=== PATIENT | female | born 1985 | race Caucasian/White ===

== ENCOUNTER 2016-07-19 06:04 | Emergency (ER) | payer MEDICAID ==
[~2016-07-19] VITALS: Ht 154.9 cm; Wt 139.3 kg
[~2016-07-19 06:04] MED LIST: FLEXERIL10 MG PO; HCTZ PO; INSULIN-HUMA100 U/ML SC; LANTUS INS100 UNITS/ SUBQ; LANTUS100 U/ML SUBQ; MOTRIN600 MG PO; NOVOLIN 70/30 710 M1 SUBQ; NOVOLOG MIX 70/10 ML SUBQ; ZESTRIL30 MG PO; [UNRECOGNIZED DRUG - OTHER]; [UNRECOGNIZED DRUG - REMARK]
[2016-07-19 06:11] VITALS: BP 142/86
--- NOTE | 2016-07-19 06:20 | NUR ---
TO ER BED 4
--- NOTE | 2016-07-19 06:30 | NUR ---
CAME IN WITH C/O PAINFUL AND BURNING SENSATION WHEN SHE URINATE FOR 2 -3 DAYS NOW.
--- NOTE | 2016-07-19 06:39 | NUR ---
Patient being evaluated by physician at bedside.
[2016-07-19 06:50] VITALS: BP 142/86
--- NOTE | 2016-07-19 06:50 | NUR ---
Patient discharged with v/s stable. Written and verbal after care instructions given and explained. Patient alert, oriented and verbalized understanding of instructions. Ambulatory with steady gait. All questions addressed prior to discharge. ID band removed. Patient advised to follow up with PMD. Rx of CIPRO, DIFLUCAN given. Patient educated on indication of medication including possible reaction and side effects. Opportunity to ask questions provided and answered.
== END 2016-07-19 06:50 | disposition home or self-care (01) ==
LOC: MED 06:04
DX: N39.0 Urinary tract infection, site not specified (principal); B37.9 Candidiasis, unspecified; J45.909 Unspecified asthma, uncomplicated; E11.9 Type 2 diabetes mellitus without complications; I10 Essential (primary) hypertension

== ENCOUNTER 2016-12-03 03:40 | Emergency (ER) | payer MEDICAID ==
[~2016-12-03] VITALS: Ht 154.9 cm; Wt 145.1 kg
[~2016-12-03 03:40] MED LIST changes: -FLEXERIL10 MG PO; -HCTZ PO; +INSU10SU6 SUBQ; -INSULIN-HUMA100 U/ML SC; -LANTUS INS100 UNITS/ SUBQ; -LANTUS100 U/ML SUBQ; +LISI10TA11 PO; -MOTRIN600 MG PO; -NOVOLIN 70/30 710 M1 SUBQ; -NOVOLOG MIX 70/10 ML SUBQ; +ORE25 PO; -ZESTRIL30 MG PO; -[UNRECOGNIZED DRUG - OTHER]; -[UNRECOGNIZED DRUG - REMARK]
[2016-12-03 03:49] VITALS: BP 159/106
--- NOTE | 2016-12-03 03:53 | NUR ---
PT TAKEN TO BED 4
--- NOTE | 2016-12-03 03:53 | NUR ---
Dr. Mccauley evaluating patient at bedside.
[2016-12-03] MEDS ORDERED: diphenhydrAMINE 50 MG CAP PO ONE (03:55)
[2016-12-03] MEDS ORDERED: predniSONE 20 MG TAB PO ONE (03:55)
[2016-12-03] MEDS ORDERED: FAMOTIDINE 20 MG TAB PO ONE (03:55)
--- NOTE | 2016-12-03 03:59 | NUR ---
31Y/F PT. PRESENT TO ED WITH C/O GENERALIZED RASH WITH ITCHING X 2 DAYS. HX. HTN, DM. AAO X4, AMBULATORY WITH STEADY GAIT. RESPIRATIONS ROOM AIR, EVEN AND UNLABORED. BL LUNG CLEAR. SKIN WARM AND DRY, GENERALIZED RASH NOTED. NO S/SX OD DISTRESS NOTED. VSS, ER MADE AWARE OF PT. STATUS.
[2016-12-03 04:25] VITALS: BP 149/95
--- NOTE | 2016-12-03 04:25 | NUR ---
Patient discharged with v/s stable. Written and verbal after care instructions given and explained. Patient alert, oriented and verbalized understanding of instructions. Ambulatory with steady gait. All questions addressed prior to discharge. ID band removed. Patient advised to follow up with PMD. Rx of PREDNISONE 20 MG, BENEDRYL 25 MG given. Patient educated on indication of medication including possible reaction and side effects. Opportunity to ask questions provided and answered.
== END 2016-12-03 04:25 | disposition home or self-care (01) ==
LOC: MED 03:40
DX: T78.1XXA Other adverse food reactions, not elsewhere classified, initial encounter (principal); L50.8 Other urticaria; J45.909 Unspecified asthma, uncomplicated; E11.9 Type 2 diabetes mellitus without complications; I10 Essential (primary) hypertension; Z79.899 Other long term (current) drug therapy; Z79.4 Long term (current) use of insulin; X58.XXXA Exposure to other specified factors, initial encounter
CPT/HCPCS: 82948; 99284; J7512; Q0163

== ENCOUNTER 2018-01-13 00:30 | Emergency (ER) | payer MEDICAID ==
[2018-01-12 23:31] VITALS: BP 143/88
[~2018-01-13] VITALS: Ht 157.5 cm; Wt 163.3 kg
[~2018-01-13 00:30] MED LIST changes: +TRA200 PO
[2018-01-13 00:43] VITALS: BP 127/62
[2018-01-13] MEDS ORDERED: ACETAMINOPHEN EXTRA STRENGTH 500 MG TAB PO ONE (01:10)
[2018-01-13 02:47] VITALS: BP 127/62
== END 2018-01-13 02:47 | disposition home or self-care (01) ==
LOC: MED 00:30 → EDSTATUS 00:30 → MED 02:47
DX: O9A.213 Injury, poisoning and certain other consequences of external causes complicating pregnancy, third trimester (principal); S83.91XA Sprain of unspecified site of right knee, initial encounter; J45.909 Unspecified asthma, uncomplicated; E11.9 Type 2 diabetes mellitus without complications; I10 Essential (primary) hypertension; Z79.899 Other long term (current) drug therapy; W18.30XA Fall on same level, unspecified, initial encounter; Y93.89 Activity, other specified; Y92.89 Other specified places as the place of occurrence of the external cause; Y99.8 Other external cause status
CPT/HCPCS: 73562; 81000; 82948; 99284; Q0092

== ENCOUNTER 2018-05-16 20:57 | Emergency (ER) | payer MEDICAID ==
[~2018-05-16] VITALS: Ht 154.9 cm; Wt 144.2 kg
[2018-05-16 21:52] VITALS: BP 162/92
--- NOTE | 2018-05-16 21:57 | NUR ---
PT AMBULATED TO LOBBY WITH VSS.
--- NOTE | 2018-05-16 23:17 | NUR ---
PT AMBULATORY TO ER PIPPA W/ STEADY GAIT.
--- NOTE | 2018-05-16 23:35 | NUR ---
PT TO RADIOLOGY VIA WHEELCHAIR BY TECH.
[2018-05-17] MEDS ORDERED: MECLIZINE 25 MG TAB PO ONE (00:20)
--- NOTE | 2018-05-17 00:45 | NUR ---
DR. CALDERON AT BEDSIDE.
[2018-05-17 01:05] VITALS: BP 148/91
== END 2018-05-17 01:05 | disposition home or self-care (01) ==
LOC: MED 20:57
DX: R42 Dizziness and giddiness (principal); R11.0 Nausea; E11.9 Type 2 diabetes mellitus without complications; I10 Essential (primary) hypertension; Z79.4 Long term (current) use of insulin; Z79.899 Other long term (current) drug therapy
CPT/HCPCS: 70450; 81002; 81025; 87086; 99284; J8597

== ENCOUNTER 2020-11-10 15:02 | Emergency (ER) | payer MEDICAID ==
[~2020-11-10] VITALS: Ht 154.9 cm; Wt 158.8 kg
[~2020-11-10 15:02] MED LIST changes: +LISI-486 PO; -LISI10TA11 PO
[2020-11-10 15:05] VITALS: BP 170/107
--- NOTE | 2020-11-10 15:56 | NUR ---
C/O URINARY BURNING, DYSURIA, LOWER ABD PAIN, 8/10 LOWER BACK PAIN, LEON, CHILLS X 3 DAYS. BP 170/107, BLOOD SUGAR 306 AT THIS TIME. PMH: DM, HTN, C SECTIONS
[2020-11-10] MEDS ORDERED: PYR100 PO (16:03)
[2020-11-10] MEDS ORDERED: CEPH-588 PO (16:03)
[2020-11-10] MEDS ORDERED: IBUP-2213 PO (16:03)
[2020-11-10 16:15] VITALS: BP 170/107
--- NOTE | 2020-11-10 16:16 | NUR ---
Patient discharged with v/s stable. Written and verbal after care instructions given and explained. Patient alert, oriented and verbalized understanding of instructions. Ambulatory with steady gait. All questions addressed prior to discharge. ID band removed. Patient advised to follow up with PMD. Rx of IBUPROFEN, CEPHALEXIN, PHENAZOPYRIDINE given. Patient educated on indication of medication including possible reaction and side effects. Opportunity to ask questions provided and answered.
== END 2020-11-10 16:16 | disposition home or self-care (01) ==
LOC: MED 15:02
DX: N39.0 Urinary tract infection, site not specified (principal); E11.9 Type 2 diabetes mellitus without complications; I10 Essential (primary) hypertension; Z79.899 Other long term (current) drug therapy
CPT/HCPCS: 81002; 81025; 99283

== ENCOUNTER 2021-01-09 01:38 | Emergency (ER) | payer MEDICAID ==
[~2021-01-09] VITALS: Ht 154.9 cm; Wt 165.6 kg
[~2021-01-09 01:38] MED LIST changes: +CEPH-588 PO; +IBUP-2213 PO; +PYR100 PO
[2021-01-09 01:40] VITALS: BP 160/102
--- NOTE | 2021-01-09 01:55 | NUR ---
AMBULATORY TO LOBBY TO A/W BED. EKG COMPLETE
[2021-01-09] MEDS ORDERED: MORPHINE SULFATE 4 MG/ML SYR IM ONE (03:00)
--- NOTE | 2021-01-09 03:00 | NUR ---
KENYA AT CHAIR FOR [facility].
[2021-01-09] MEDS ORDERED: predniSONE 20 MG TAB PO ONE (06:55)
[2021-01-09] MEDS ORDERED: ROBAC PO (06:56)
[2021-01-09] MEDS ORDERED: PRON INH (06:56)
[2021-01-09] MEDS ORDERED: ALBU0.0912 INH (06:56)
[2021-01-09] MEDS ORDERED: PRED20TA5 PO (06:56)
--- NOTE | 2021-01-09 07:31 | NUR ---
ENDORSED FROM BUSINESS CASE ANALYST
[2021-01-09] MEDS ORDERED: predniSONE 20 MG TAB ONE (08:17)
[2021-01-09 08:32] VITALS: BP 180/96
--- NOTE | 2021-01-09 08:32 | NUR ---
Patient discharged with v/s stable. Written and verbal after care instructions given and explained. Patient alert, oriented and verbalized understanding of instructions. Ambulatory with steady gait. All questions addressed prior to discharge. ID band removed. Patient advised to follow up with PMD. Rx of ALBUTEROL, PREDISONE, AND CODEINE PHOSPHATE/GUAIFENESI given. Patient educated on indication of medication including possible reaction and side effects. Opportunity to ask questions provided and answered.
== END 2021-01-09 08:32 | disposition home or self-care (01) ==
LOC: MED 01:38
DX: J45.909 Unspecified asthma, uncomplicated (principal); E11.9 Type 2 diabetes mellitus without complications; I10 Essential (primary) hypertension; Z79.899 Other long term (current) drug therapy; Z79.4 Long term (current) use of insulin
CPT/HCPCS: 71045; 93005; 96372; 99283; J2270; J7512

== ENCOUNTER 2021-01-20 18:28 | Emergency (ER) | payer MEDICAID ==
[~2021-01-20] VITALS: Ht 154.9 cm; Wt 166.9 kg
[~2021-01-20 18:28] MED LIST changes: +ALBU0.0912 INH; +PRED20TA5 PO; +PRON INH; +ROBAC PO
[2021-01-20 18:47] VITALS: BP 180/101
--- NOTE | 2021-01-20 18:52 | NUR ---
PT AMBULATED TO ER BED 2
--- NOTE | 2021-01-20 19:04 | NUR ---
DEONNA ELLIOTT AT BEDSIDE EVALUATING PT
--- NOTE | 2021-01-20 19:16 | NUR ---
REPORT GIVEN TO SHU POON, TRANSFER OF CARE AT THIS TIME
[2021-01-20] MEDS ORDERED: ALBUTEROL SULFATE/IPRATROPIU 3 ML SOL IH ONE (19:20)
[2021-01-20] MEDS ORDERED: ACETAMINOPHEN EXTRA STRENGTH 500 MG TAB PO ONE (19:30)
[2021-01-20] MEDS ORDERED: predniSONE 20 MG TAB PO ONE (19:30)
--- NOTE | 2021-01-20 19:47 | NUR ---
ADMINISTERED ERMD MED ORDERS
[2021-01-20] MEDS ORDERED: ACET-10509 PO (20:38)
[2021-01-20] MEDS ORDERED: BENZ-196 PO (20:38)
[2021-01-20] MEDS ORDERED: PRED20TA5 PO (20:38)
[2021-01-20 21:06] VITALS: BP 180/101
--- NOTE | 2021-01-20 21:08 | NUR ---
Patient discharged with v/s stable. Written and verbal after care instructions given and explained. Patient alert, oriented and verbalized understanding of instructions. Ambulatory with steady gait. All questions addressed prior to discharge. ID band removed. Patient advised to follow up with PMD. Rx of TYLENOL, TESSALON PERIE, PREDNISONE given. Patient educated on indication of medication including possible reaction and side effects. Opportunity to ask questions provided and answered.
== END 2021-01-20 21:08 | disposition home or self-care (01) ==
LOC: MED 18:28
DX: J45.909 Unspecified asthma, uncomplicated (principal); J06.9 Acute upper respiratory infection, unspecified; E11.9 Type 2 diabetes mellitus without complications; I10 Essential (primary) hypertension; Z79.4 Long term (current) use of insulin; Z79.899 Other long term (current) drug therapy
CPT/HCPCS: 93005; 94640; 99283; J7512

== ENCOUNTER 2021-01-31 11:57 | Emergency (ER) | payer MEDICAID ==
[~2021-01-31] VITALS: Ht 154.9 cm; Wt 163.3 kg
[~2021-01-31 11:57] MED LIST changes: +ACET-10509 PO; +BENZ-196 PO
[2021-01-31 12:08] VITALS: BP 195/105
--- NOTE | 2021-01-31 12:38 | NUR ---
pt c/o cough , sob x1 week. finished 2 rounds of steroids. states no relief. mildly tachypneic. speaking in complete sentences. pending orders.
[2021-01-31] MEDS ORDERED: methylPREDNISolone SS 125 MG/2 ML VIAL IVP ONE (12:55)
[2021-01-31] MEDS ORDERED: ALBUTEROL 0.083% 2.5 MG/3 ML NEBU INH ONE ×2 (12:55→14:05)
--- NOTE | 2021-01-31 13:12 | NUR ---
ABG COMPLETED NO ADVERSE REACTIOSN NOTED AR RIGHT RADIAL
--- NOTE | 2021-01-31 13:15 | NUR ---
[facility] THERPAY AND RESPIRATORY DRUG GIVEN ORDERED ENCOURAGED PATIENT FOR INTERMITTENT DEEP BREATHING DURING THERAPY
[2021-01-31 13:16] LABS: BASOPHILS % (AUTO) 0.4 % (0.0-2.0); EOSINOPHILS # (AUTO) 0.3 K/uL (0-0.4); EOSINOPHILS % (AUTO) 2.6 % (0.0-4.0); HEMATOCRIT 31.6 % (36-48); LYMPHOCYTES # (AUTO) 1.5 K/uL (2.5-16.5); LYMPHOCYTES % (AUTO) 13.3 % (20.5-51.1); MEAN CORPUSCULAR HEMOGLOBIN 24 pg (27-31); MEAN CORPUSCULAR HGB CONC 32 g/dL (33-37); MEAN CORPUSCULAR VOLUME 75.2 fL (80-94); MONOCYTES # (AUTO) 0.6 K/uL (0.8-1.0); NEUTROPHILS % (AUTO) 78.7 % (42.2-75.2); PLATELET COUNT (AUTO) 262 K/uL (140-450); WHITE BLOOD COUNT (AUTO) 11.4 K/uL (4.8-10.8)
[2021-01-31 13:25] LABS: ALBUMIN 2.3 g/dL (3.4-5.0); ANION GAP 7.8 (8-16); CARBON DIOXIDE 31.7 mmol/L (21-32); CREATININE 0.8 mg/dL (0.6-1.3); POTASSIUM 4.5 mmol/L (3.5-5.1); TOTAL BILIRUBIN 0.3 mg/dL (0.0-1.0)
[2021-01-31] MEDS ORDERED: IPRATROPIUM 0.02% 0.5 MG/2.5 ML NEBU INH ONE (14:05)
[2021-01-31] MEDS ORDERED: PRED50TA2 PO (14:13)
[2021-01-31] MEDS ORDERED: AZIT250T4 PO (14:13)
--- NOTE | 2021-01-31 14:34 | NUR ---
pt verbalizes dc instructions.no acute distress noted.stable on dc.
[2021-01-31 14:36] VITALS: BP 137/80
[2021-03-10] MEDS ORDERED: INSU100I7 SQ (02:40)
[2021-03-10] MEDS ORDERED: TRAZ-343 PO (02:40)
[2021-03-10] MEDS ORDERED: DULA4.5P SQ (02:40)
[2021-03-13] MEDS ORDERED: PANT40EC56 PO (09:07)
[2021-03-13] MEDS ORDERED: FURO-570 PO (09:07)
[2021-03-13] MEDS ORDERED: NIFE30TA36 PO (09:07)
[2021-03-13] MEDS ORDERED: METO25TA PO (09:07)
[2021-03-13] MEDS ORDERED: PRED10TA5 PO (09:07)
== END 2021-01-31 14:34 | disposition home or self-care (01) ==
LOC: MED 11:57
DX: J45.901 Unspecified asthma with (acute) exacerbation (principal); R60.0 Localized edema; J45.909 Unspecified asthma, uncomplicated; I10 Essential (primary) hypertension; E11.9 Type 2 diabetes mellitus without complications; Z79.899 Other long term (current) drug therapy; Z20.822 Contact with and (suspected) exposure to COVID-19
CPT/HCPCS: 36415; 36600; 71045; 80053; 82803; 83880; 84484; 85025; 85379; 87426; 87804; 93005; 94640; 96374; 99285; J2930; J7613; J7644; Q0092

== ENCOUNTER 2021-02-08 14:17 | Inpatient (IN) | payer MEDICAID, SELFPAY ==
[~2021-02-08] VITALS: Ht 154.9 cm; Wt 178.7 kg
[~2021-02-08 14:17] MED LIST changes: +AZIT250T4 PO; +PRED50TA2 PO
[2021-02-08 14:20] VITALS: BP 185/110
--- NOTE | 2021-02-08 14:29 | NUR ---
Patient ambulated with steady gait to bed 1.
--- NOTE | 2021-02-08 14:40 | NUR ---
DR HUTCHINSON AT BEDSIDE EXAMINING PT
--- NOTE | 2021-02-08 14:40 | NUR ---
35 Y/O F BIB SPOUSE FROM HOME, C/O SOB, COUGH, CONGESTION FOR 1 MO. DENIES ANYONE ELSE SICK IN HOUSEHOLD. PT STATED SHE HAS SWELLING IN FACE, HANDS AND BILATERAL LOWER EXTREMITIES THIS MORNING. LUNG SOUNDS WHEEZING. PT STATES 8/10 ACHING PAIN RADIATING TO LOWER BACK. PMH: ASTHMA, HTN, DM2 NKA
[2021-02-08] MEDS ORDERED: ALBUTEROL SULFATE/IPRATROPIU 3 ML SOL IH ONE (14:50)
--- NOTE | 2021-02-08 15:11 | NUR ---
XRAY AT BEDSIDE
[2021-02-08] MEDS ORDERED: KETOROLAC 30 MG/ML VIAL IM ONE (17:05)
--- NOTE | 2021-02-08 17:40 | NUR ---
DR HUTCHINSON AT BEDSIDE PERFORMING ULTRASOUND
--- NOTE | 2021-02-08 18:14 | NUR ---
BLOOD LABS DROPPED OFF AT LAB WITH SUSANA ALEMAN
[2021-02-08 18:23] LABS: BASOPHILS # (AUTO) 0.1 K/uL (0.00-0.22); BASOPHILS % (AUTO) 0.8 % (0.0-2.0); EOSINOPHILS # (AUTO) 0.3 K/uL (0-0.4); EOSINOPHILS % (AUTO) 2.8 % (0.0-4.0); HEMATOCRIT 31.6 % (36-48); HEMOGLOBIN 10.1 g/dL (12.0-16.0); LYMPHOCYTES # (AUTO) 1.5 K/uL (2.5-16.5); LYMPHOCYTES % (AUTO) 15.3 % (20.5-51.1); MEAN CORPUSCULAR HEMOGLOBIN 24 pg (27-31); MEAN CORPUSCULAR HGB CONC 32 g/dL (33-37); MEAN CORPUSCULAR VOLUME 75.8 fL (80-94); MONOCYTES # (AUTO) 0.5 K/uL (0.8-1.0); MONOCYTES % (AUTO) 4.8 % (1.7-9.3); NEUTROPHILS # (AUTO) 7.4 K/uL (1.8-7.7); NEUTROPHILS % (AUTO) 76.3 % (42.2-75.2); PLATELET COUNT (AUTO) 272 K/uL (140-450); RED BLOOD CELL COUNT(AUTO) 4.18 MIL/uL (4.20-5.40); RED CELL DISTRIBUTION WIDTH 17.3 % (11.6-13.7); WHITE BLOOD COUNT (AUTO) 9.8 K/uL (4.8-10.8)
--- NOTE | 2021-02-08 18:30 | NUR ---
PT TAKEN TO CT SCAN VIA MITCHELL
[2021-02-08 18:35] LABS: ALBUMIN 2.2 g/dL (3.4-5.0); ANION GAP 10.4 (8-16); CARBON DIOXIDE 33.3 mmol/L (21-32); CREATININE 0.9 mg/dL (0.6-1.3); POTASSIUM 4.7 mmol/L (3.5-5.1); TOTAL BILIRUBIN 0.3 mg/dL (0.0-1.0)
--- NOTE | 2021-02-08 18:40 | NUR ---
PER CHEMICAL ENGINEER PT UNABLE TO FIT THROUGH CT SCAN, KENYA MADE AWARE
--- NOTE | 2021-02-08 18:42 | NUR ---
PT RETURNED FROM CT
--- NOTE | 2021-02-08 18:57 | NUR ---
PT REQUESTING FOR FOOD, PER ERMD OKAY TO GIVE. PROVIDED WITH TURKEY SANDWICH
--- NOTE | 2021-02-08 19:00 | NUR ---
RECEIVED CALL FROM [employer] WHO STATED CT CANNOT BE COMPLETED DUE TO PT OVER WEIGHT LIMIT FOR CT. DR. DIETZ MADE AWARE.
--- NOTE | 2021-02-08 19:09 | NUR ---
Pt report given to JEREMIAH SHERWOOD. Transfer of care at this time.
--- NOTE | 2021-02-08 19:14 | NUR ---
RECEIVED REPORT FROM DEBBIE POON.
--- NOTE | 2021-02-08 20:00 | NUR ---
PT REPOSITIONED AND PUT INTO SEMI FOWLERS POSITION.
[2021-02-08] MEDS ORDERED: ONDANSETRON 4 MG/2 ML VIAL IVP PRN (20:25)
[2021-02-08] MEDS ORDERED: LORazepam 2 MG/ML VIAL IM/IVP PRN (20:25)
[2021-02-08] MEDS ORDERED: SODIUM PHOS / POTASSIUM PHOS 1 PKT PDR PO PRN (20:25)
[2021-02-08] MEDS ORDERED: ACETAMINOPHEN 325 MG TAB PO PRN (20:25)
[2021-02-08] MEDS ORDERED: MAG SULF 2000 MG/WATER PREMIX 50 ML IV PRN (20:25)
[2021-02-08] MEDS ORDERED: ZOLPIDEM 5 MG TAB PO PRN (20:25)
[2021-02-08] MEDS ORDERED: POTASSIUM CHLORIDE 10 MEQ TABER PO PRN (20:25)
[2021-02-08] MEDS ORDERED: DOCUSATE SODIUM 100 MG GELCAP PO PRN (20:25)
[2021-02-08] MEDS ORDERED: MORPHINE SULFATE 2 MG/ML SYR IVP PRN (20:25)
--- NOTE | 2021-02-08 20:35 | NUR ---
US AT BEDSIDE
[2021-02-08] MEDS ORDERED: DEXTROSE 50% 50 ML SYR IVP PRN (20:40)
[2021-02-08] MEDS ORDERED: hydrALAZINE 20 MG/ML VIAL IVP SCH (20:45)
[2021-02-08] MEDS ORDERED: ALBUTEROL 0.083% 2.5 MG/3 ML NEBU INH PRN (20:45)
--- NOTE | 2021-02-08 20:48 | NUR ---
Mark maher in EDM - 02/08/21 at 2051 by [email or web address] PATIENT ALERT ORIENTED NOT COMPLAINED OF PAIN AT THIS TIME STABLE ADMITED TO THE FLOOR ROOM 105B REPORTED AND ENDORSE OF CARE TO CHANDU KOO SIGNS IN NORMAL LIMITS //Marly POON
[2021-02-08] MEDS: NACL 0.9% 1,000 ML IV SCH (20:55)
[2021-02-08] MEDS: methylPREDNISolone SS 40 MG/ML VIAL IVP SCH (21:01)
[2021-02-08] MEDS: BLOOD GLUCOSE MONITORING 1 DEV DEV FS SCH (21:12)
[2021-02-08 21:14] LABS: PROTHROMBIN TIME 9.5 secs (10.8-13.4)
[2021-02-08 21:27] LABS: CHOL/HDL RATIO 2.6 (1-4.5); FREE T4 (FREE THYROXINE) 1.06 ng/dL (0.76-1.46); PHOSPHORUS 4.2 mg/dL (2.5-4.9); THYROID STIMULATING HORMONE 1.18 uIU/mL (0.34-3.74)
[2021-02-08] MEDS: INSULIN LISPRO SLIDING SCALE 100 UNITS/ML VIAL SUBQ PRN (21:40)
--- NOTE | 2021-02-08 21:40 | NUR ---
INSULIN ADMINISTERED PER SLIDING SCALE OF BS OF 211.
--- NOTE | 2021-02-08 22:09 | NUR ---
Patient appears to be resting comfortably in bed. Vital Signs within normal limits. Respirations even and unlabored. BOTH BED RAILS UP AND BED AT LOWEST POSITION.
--- NOTE | 2021-02-08 22:23 | NUR ---
Mark maher in [facility] - 02/08/21 at 2224 by [email or web address] REPOSITIONED PT IN THE BED, PT RESTING COMFORTABLY.
--- NOTE | 2021-02-08 22:59 | NUR ---
RT AT [facility] WITH PT.
[2021-02-09] MEDS ORDERED: CLONIDINE HYDROCHLORIDE 0.1 MG TAB PO SCH (01:30)
[2021-02-09] MEDS ORDERED: HYDROcodone/APAP 5/325 MG 1 TAB TAB ONE (02:33)
[2021-02-09] MEDS: HYDROcodone/APAP 5/325 MG 1 TAB TAB PO PRN (02:34)
--- NOTE | 2021-02-09 02:34 | NUR ---
PT C/O HEADACHE AND WAS GIVEN A PRN MEDICATION FOR PAIN.
--- NOTE | 2021-02-09 03:41 | NUR ---
PT'S SPO2 MOVED TO EARLOBE.
--- NOTE | 2021-02-09 04:21 | NUR ---
Patient appears to be resting comfortably in bed. Respirations even and unlabored. BED AT LOWEST POSITION AND BOTH BED RAILS DOWN.
--- NOTE | 2021-02-09 05:34 | NUR ---
PT REPOSTIONED, PT IN [employer] STATES SHE FEELS A LOT BETTER AND ASKED WHEN SHE WAS GOING TO BE MOVED TO TELE. PT'S BED IN LOWEST POSITION AND BOTH BED RAILS UP.
--- NOTE | 2021-02-09 05:40 | NUR ---
PT ASKED TO USE RESTOOM X 3 TIMES, PT STATES SHE DOESNT NEED TOO AND WILL TRY GOING SOON.
[2021-02-09 06:11] LABS: BASOPHILS # (AUTO) 0.1 K/uL (0.00-0.22); EOSINOPHILS % (AUTO) 0.1 % (0.0-4.0); HEMATOCRIT 35.2 % (36-48); HEMOGLOBIN 11.3 g/dL (12.0-16.0); MEAN CORPUSCULAR HEMOGLOBIN 24 pg (27-31); MEAN CORPUSCULAR HGB CONC 32 g/dL (33-37); MEAN CORPUSCULAR VOLUME 75.7 fL (80-94); MONOCYTES # (AUTO) 0.1 K/uL (0.8-1.0); MONOCYTES % (AUTO) 0.9 % (1.7-9.3); NEUTROPHILS # (AUTO) 9.6 K/uL (1.8-7.7); PLATELET COUNT (AUTO) 318 K/uL (140-450); RED BLOOD CELL COUNT(AUTO) 4.65 MIL/uL (4.20-5.40); RED CELL DISTRIBUTION WIDTH 17.4 % (11.6-13.7); WHITE BLOOD COUNT (AUTO) 10.8 K/uL (4.8-10.8)
[2021-02-09 06:15] LABS: BILIRUBIN,URINE NEGATIVE (NEGATIVE); BLOOD, URINE 2+ (NEGATIVE); LEUKOCYTE ESTERASE ,URINE NEGATIVE (NEGATIVE); NITRITE, URINE NEGATIVE (NEGATIVE); UGLUCOSE 2+ (NEGATIVE)
[2021-02-09 06:22] LABS: APPEARANCE,URINE CLOUDY (CLEAR); COLOR,URINE YELLOW (YELLOW)
[2021-02-09] MEDS: NACL 0.9% 1,000 ML IV SCH ×2 (06:25→16:25)
[2021-02-09 06:34] LABS: ALBUMIN 2.4 g/dL (3.4-5.0); ANION GAP 13.8 (8-16); CARBON DIOXIDE 28.8 mmol/L (21-32); CREATININE 1.1 mg/dL (0.6-1.3); MAGNESIUM 1.6 mg/dL (1.8-2.4); POTASSIUM 4.6 mmol/L (3.5-5.1); TOTAL BILIRUBIN 0.4 mg/dL (0.0-1.0)
[2021-02-09 06:36] LABS: WBC,URINE 0-5 /HPF (0-5)
[2021-02-09 06:37] LABS: URINE AMORPHOUS URATE 1+ /HPF (None Seen)
[2021-02-09 06:39] LABS: BARBITURATE, URINE NEGATIVE ng/ml (NEG <=200); BENZODIAZEPINE, URINE NEGATIVE ng/mL (NEG <=200); CANNABINOID, URINE NEGATIVE ng/mL (NEG <=50); COCAINE, URINE NEGATIVE ng/mL (NEG <=300); OPIATE, URINE NEGATIVE ng/mL (NEG <=2000); PHENCYCLIDINE SCREEN,URINE NEGATIVE ng/mL (NEG <=25)
[2021-02-09 06:52] LABS: LYMPHOCYTES % (AUTO) 9.1 % (20.5-51.1); NEUTROPHILS % (AUTO) 88.9 % (42.2-75.2)
--- NOTE | 2021-02-09 06:57 | NUR ---
Patient appears to be resting comfortably in bed. Vital Signs within normal limits. Respirations even and unlabored. BOTH BED RAILS DONE AND BED AT LOWEST POSITION.
--- NOTE | 2021-02-09 07:13 | NUR ---
REPORT GIVEN TO LONA POON. Addendum: 02/09/21 at 0714 by [email or web address] REPORT GIVEN TO LONA POON FOR TRANSFER OF CARE.
[2021-02-09] MEDS: BLOOD GLUCOSE MONITORING 1 DEV DEV FS SCH ×4 (07:20→21:00)
[2021-02-09] MEDS: INSULIN LISPRO SLIDING SCALE 100 UNITS/ML VIAL SUBQ PRN ×4 (07:31→22:35)
--- NOTE | 2021-02-09 07:47 | NUR ---
ER CALLED TO GIVE REPORT ON NEW ADMIT. ER STATED PT IS STABLE.
--- NOTE | 2021-02-09 07:51 | NUR ---
Patient will be admitted to care of MARIANA TOLBERT. Admited to TELEMETRY. Will go to room 105A. Belongings list completed. Report to KADEN POON.
--- NOTE | 2021-02-09 08:05 | NUR ---
PT ARRIVED ON UNIT TO RM 105A. VS WERE TAKEN. PT IS BREATHING EVEN AND UNLABORED WITH SOME AUDIBLE WHEEZING. NO S/S OF DISTRESS. PT DENIES PAIN AT THE MOMENT. PT IS STABLE.
[2021-02-09] MEDS: hydroCHLOROthiazide 25 MG TAB PO SCH (09:42)
[2021-02-09] MEDS: lisinopriL 10 MG TAB PO SCH (09:42)
[2021-02-09] MEDS: FUROSEMIDE 20 MG/2 ML VIAL IVP SCH (09:42)
[2021-02-09] MEDS: methylPREDNISolone SS 40 MG/ML VIAL IVP SCH ×2 (09:42→21:00)
--- NOTE | 2021-02-09 11:30 | NUR ---
BLOOD SUGAR IS 292. WILL GIVE 6 UNITS OF INSULIN PER MD ORDER AND SLIDING SCALE. PT IS STABLE.
[2021-02-09] MEDS: LABETALOL 200 MG TAB PO SCH (12:50)
--- NOTE | 2021-02-09 13:00 | NUR ---
PT IS RESTING WITH FAMILY AT BEDSIDE. BREATHING IS EVEN AND UNLABORED. NO S/S OF DISTRESS. PT IS STABLE.
--- NOTE | 2021-02-09 14:30 | NUR ---
PT IS RESTING. BREATHING IS EVEN AND UNLABORED. NO S/S OF DISTRESS. PT IS STABLE.
[2021-02-09 16:00] VITALS: BP 122/59
--- NOTE | 2021-02-09 16:30 | NUR ---
PT BLOOD SUGAR IS 305. WILL COVER WITH 8 UNITS. PT EXPLAINED SHE TAKES LANTUS AT HOME BEFORE BEDTIME.
--- NOTE | 2021-02-09 16:35 | NUR ---
DR ORDERED INSULIN GLARGINE LANTUS 60 UNITS AT BEDTIME TO BETTER CONTROL BLOOD SUGAR.
[2021-02-09] MEDS: MONTELUKAST SODIUM 10 MG TAB PO SCH (17:05)
--- NOTE | 2021-02-09 18:01 | NUR ---
PT IS SITTING IN CHAIR. TALKING ON THE PHONE WITH FAMILY. BREATHING IS EVEN AND UNLABORED. NO S/S OF DISTRESS. PT IS STABLE.
--- NOTE | 2021-02-09 19:30 | NUR ---
ENDORSED PT BEDSIDE TO ENERGY RATER NURSE FOR CONTINUITY OF CARE. EXPLAINED POC. PT IS STABLE.
[2021-02-09 20:00] VITALS: BP 120/58
[2021-02-09] MEDS: INSULIN LANTUS 100 UNITS/ML 10 ML VIAL SUBQ SCH (21:00)
--- NOTE | 2021-02-09 22:09 | NUR ---
NOC BI-PAP STARTED AT THIS TIME PT IS TOLERATING WELL, CPAP- PS 11, 21% FIO2, WILL CONTINUE TO MONITOR
[2021-02-10] VITALS: BP 122/60
[2021-02-10] MEDS: NACL 0.9% 1,000 ML IV SCH ×3 (02:12→22:25)
--- NOTE | 2021-02-10 03:20 | NUR ---
PATIENT ALERT NO C/O ON MONITOR SINUS PATIENT PUT ON BI-PAP 02 24 % NO C/O OF RESP. DISTRESS. LUNGS DIMINISH BLOOD SUGAR 330 HUMALOG 8 UNITS. S.Q LANTUS 60 UNITS. S.Q. PATIENT MAG. 1.6 GIVEN 2000MG MAGNESIUM-RIDER. PATIENT HAS IV SITE IN LEFT UPPER ARM INFUSING NS 100 HOUR. PATIENT SLEEPING WELL. NO DISTRESS.
[2021-02-10 04:00] VITALS: BP 120/62
[2021-02-10] MEDS: BLOOD GLUCOSE MONITORING 1 DEV DEV FS SCH ×4 (06:36→21:02)
[2021-02-10 06:37] LABS: BASOPHILS % (AUTO) 0.1 % (0.0-2.0); HEMATOCRIT 31.6 % (36-48); HEMOGLOBIN 10.1 g/dL (12.0-16.0); LYMPHOCYTES # (AUTO) 1.1 K/uL (2.5-16.5); LYMPHOCYTES % (AUTO) 10.6 % (20.5-51.1); MEAN CORPUSCULAR HEMOGLOBIN 24 pg (27-31); MEAN CORPUSCULAR HGB CONC 32 g/dL (33-37); MEAN CORPUSCULAR VOLUME 76.1 fL (80-94); MONOCYTES # (AUTO) 0.2 K/uL (0.8-1.0); MONOCYTES % (AUTO) 2.2 % (1.7-9.3); NEUTROPHILS # (AUTO) 8.8 K/uL (1.8-7.7); NEUTROPHILS % (AUTO) 87.1 % (42.2-75.2); PLATELET COUNT (AUTO) 277 K/uL (140-450); RED BLOOD CELL COUNT(AUTO) 4.15 MIL/uL (4.20-5.40); RED CELL DISTRIBUTION WIDTH 17.4 % (11.6-13.7); WHITE BLOOD COUNT (AUTO) 10.1 K/uL (4.8-10.8)
[2021-02-10] MEDS: INSULIN LISPRO SLIDING SCALE 100 UNITS/ML VIAL SUBQ PRN ×4 (06:37→21:17)
[2021-02-10 06:40] LABS: ALBUMIN 2.3 g/dL (3.4-5.0); ANION GAP 11.5 (8-16); CARBON DIOXIDE 30.4 mmol/L (21-32); CREATININE 0.8 mg/dL (0.6-1.3); MAGNESIUM 2.2 mg/dL (1.8-2.4); POTASSIUM 4.9 mmol/L (3.5-5.1); TOTAL BILIRUBIN 0.3 mg/dL (0.0-1.0)
--- NOTE | 2021-02-10 07:30 | NUR ---
PATIENT ENDORSED FROM CAN CAPPER NURSE. PT RESTING IN BED ALL SAFETY MEASURES ARE IN PLACE. CALL LIGHT WITHIN REACH , BED IN LOWEST POSITION. ALL BELONGINGS WITHIN REACH.
--- NOTE | 2021-02-10 07:35 | NUR ---
AWAKE AND ALERT VERBALLY RESPONSIVE GOOD CHEST RISE AIRWAY PATENT CURRENTLY STANDING AT SINK FOR MORNING HYGIENE PATIENT STATES THAT SHE REMOVED BIPAP TO MASK AT OR AROUND 0500 HOUR ON ROOM AIR SATURATION 97% HR 111 RR 20-24
[2021-02-10 08:00] VITALS: BP 129/75
[2021-02-10] MEDS: lisinopriL 10 MG TAB PO SCH (08:36)
[2021-02-10] MEDS: FUROSEMIDE 20 MG/2 ML VIAL IVP SCH (08:36)
[2021-02-10] MEDS: hydroCHLOROthiazide 25 MG TAB PO SCH (08:37)
[2021-02-10] MEDS: methylPREDNISolone SS 40 MG/ML VIAL IVP SCH (08:37)
--- NOTE | 2021-02-10 08:54 | NUR ---
PATIENT HAS BEEN SCREENED AND CATEGORIZED HIGH NUTRITION RISK. PATIENT WILL BE SEEN WITHIN 1-2 DAYS OF ADMISSION. 02/10/21 REFERRAL RECEIVED FOR LOW SODIUM DIET [address]
--- NOTE | 2021-02-10 09:25 | NUR ---
MEDICATIONS GIVEN PER MD ORDER. PT EDUCATED AND VERBALIZED UNDERSTANDING . PATIENT IS ABLE TO MAKE NEEDS KNOWN ICE WATER PROVIDED AT THIS TIME . ALL SAFETY MEASURES ARE IN PLACE.
--- NOTE | 2021-02-10 10:30 | NUR ---
ECHO COMPLETE, PT TOLERATED WELL . ALL SAFETY MEASURES ARE IN PLACE.
[2021-02-10] MEDS: cephALEXin 500 MG CAP PO SCH ×3 (11:15→21:01)
--- NOTE | 2021-02-10 11:30 | NUR ---
PT BG ASSESSED 316 . PT STATES SHE TAKES LANTUS AT HOME AND THAT IS THE REASON WHY HER BG IS HIGH . ALL SAFETY MEASURES ARE IN PLACE . MD ANGULO
--- NOTE | 2021-02-10 11:52 | NUR ---
02/10/21 RD INITIAL ASSESSMENT COMPLETED PLEASE REFER TO NUTRITION ASSESSMENT UNDER CARE ACTIVITY FOR ESTIMATED NUTRITIONAL NEEDS. 1.RECOMMEND CCHO, 2GM NA DIET 2.PROVIDED NUTRITION EDUCATION ON CCHO, 2GM NA DIET 3. RD TO FOLLOW-UP 3-5 DAYS, MODERATE RISK REVIEWED BY SHAWNEE MARX RD
[2021-02-10] MEDS: LABETALOL 200 MG TAB PO SCH (12:19)
--- NOTE | 2021-02-10 12:20 | NUR ---
MEDICATIONS GIVEN PER MD ORDER. PT EDUCATED AND VERBALIZED UNDERSTANDING ALL SAFETY MEASURES ARE IN PLACE.E
[2021-02-10 16:00] VITALS: BP 149/80
--- NOTE | 2021-02-10 16:30 | NUR ---
BG 347, PATIENT EDUCATED AND VERBALIZED UNDERSTANDING . PRN MEDICATION GIVEN AT THIS TIME . DOUBLE NURSE VERIFICATION PERFORMED ALL SAFETY MEASURES ARE IN PLACE.
[2021-02-10] MEDS: MONTELUKAST SODIUM 10 MG TAB PO SCH (17:10)
--- NOTE | 2021-02-10 17:14 | NUR ---
medications given per md order. patient educated and verba;ized understanding . all safety measures are in place,
--- NOTE | 2021-02-10 18:32 | NUR ---
THERAPEUTIC COMMUNICATION PERFORMED. PT VENTED ABOUT HER DECISION TO RECEIVE GASTRIC BYPASS AND LOSE WEIGHT . PT HAD 100% OF DINNER ALL SAFETY MEASURES ARE IN PLACE.
--- NOTE | 2021-02-10 19:34 | NUR ---
patient endorsed to police shift commander nurse. pt instable condition.
--- NOTE | 2021-02-10 19:35 | NUR ---
RECEIVED REPORT FROM MORNING SHIFT FOR CONTINUITY OF CARE. PATIENT IS STABLE IN BED. A&OX4. VERBALLY RESPONSIVE AND ABLE TO COMMUNICATE NEEDS. DENIES PAIN AT THIS TIME. NO APPARENT S/SX OF ACUTE DISTRESS. RESPIRATIONS EVEN AND UNLABORED. ON RA WITH AN O2 SAT OF 97% LEFT FOREARM 20G PATENT/INTACT WITH NS INFUSING AT 100 ML/HR. PATIENT IS CONTINENT. SKIN IS INTACT. PLAN OF CARE AND WHITE COMMUNICATION BOARD UPDATED. BED IN LOW/LOCKED POSITION. CALL LIGHT WITHIN REACH. ENCOURAGE PATIENT TO CALL FOR ANY NEEDS/ASSISTANCE. WILL CONTINUE TO MONITOR.
--- NOTE | 2021-02-10 21:02 | NUR ---
ADMINISTERED SCHEDULED MEDICATIONS PER MD ORDER. BLOOD SUGAR CHECKED AND COVERAGE NEEDED PER MD ORDER. PATIENT C/O PAIN 08/29. WILL ADMINISTER PRN MEDICATION PER MD ORDER. PATIENT TOLERATED MEDICATIONS WELL. RESPIRATIONS EVEN AND UNLABORED. NO APPARENT S/SX OF ACUTE DISTRESS. WHITE BOARD COMMUNICATION UPDATED. ALL SAFETY MEASURES IN PLACE. CALL LIGHT WITHIN REACH. WILL CONTINUE TO MONITOR.
[2021-02-10] MEDS: INSULIN LANTUS 100 UNITS/ML 10 ML VIAL SUBQ SCH (21:14)
[2021-02-10] MEDS: HYDROcodone/APAP 5/325 MG 1 TAB TAB PO PRN (21:25)
--- NOTE | 2021-02-10 22:00 | NUR ---
REVIEWED PT PLAN OF CARE WITH HARRIS GONZALES LVN AND WILL CONTINUE WITH PLAN OF CARE.
--- NOTE | 2021-02-10 23:02 | NUR ---
ANSWERED CALL LIGHT. PATIENT C/O IV SITE LEAKING. CLEANED PATIENT'S IV SITE. ATTEMPTED IV INSERTION TWICE. WILL ENDORSE TO CHARGE NURSE CHAZ TO ESTABLISH A NEW IV LINE. PATIENT DENIES PAIN AT THIS TIME. RESPIRATIONS EVEN AND UNLABORED. NO APPARENT S/SX OF ACUTE DISTRESS. WHITE BOARD COMMUNICATION UPDATED. ALL SAFETY MEASURES IN PLACE. CALL LIGHT WITHIN REACH. WILL CONTINUE TO MONITOR.
--- NOTE | 2021-02-11 03:02 | NUR ---
ROUNDED ON PATIENT. STABLE AND ASLEEP IN RIGHT SIDE-LYING POSITION. CPAP MACHINE IN USE. CHEST RISING AND FALLING. RESPIRATIONS EVEN AND UNLABORED. NO APPARENT S/SX OF ACUTE DISTRESS. WHITE BOARD COMMUNICATION UPDATED. ALL SAFETY MEASURES IN PLACE. CALL LIGHT WITHIN REACH. WILL CONTINUE TO MONITOR.
--- NOTE | 2021-02-11 03:45 | NUR ---
ANSWERED CALL LIGHT. PATIENT ACCIDENTALLY REMOVED IV. RE-INSERTED IV ON RIGHT HAND 22G WITH WRAPS AROUND TO SECURE IN PLACE. PATIENT DENIES PAIN AT THIS TIME. RESPIRATIONS EVEN AND UNLABORED. NO APPARENT S/SX OF ACUTE DISTRESS. ALL SAFETY MEASURES IN PLACE. CALL LIGHT WITHIN REACH. WILL CONTINUE TO MONITOR.
[2021-02-11 04:00] VITALS: BP 125/78
--- NOTE | 2021-02-11 04:36 | NUR ---
NOC BI-PAP REMOVED AT THIS TIME PER PATIENT REQUEST
[2021-02-11] MEDS: cephALEXin 500 MG CAP PO SCH ×2 (05:44→13:02)
--- NOTE | 2021-02-11 05:45 | NUR ---
ADMINISTERED SCHEDULED PO MEDICATION. TOLERATED WELL. NO AR NOTED AT THIS TIME. DENIES PAIN AT THIS TIME. RESPIRATIONS EVEN AND UNLABORED. NO APPARENT S/SX OF ACUTE DISTRESS. WHITE BOARD COMMUNICATION UPDATED. ALL SAFETY MEASURES IN PLACE. CALL LIGHT WITHIN REACH. WILL CONTINUE TO MONITOR.
[2021-02-11] MEDS: BLOOD GLUCOSE MONITORING 1 DEV DEV FS SCH ×2 (06:41→12:02)
[2021-02-11 06:55] LABS: BASOPHILS # (AUTO) 0.1 K/uL (0.00-0.22); BASOPHILS % (AUTO) 0.5 % (0.0-2.0); EOSINOPHILS # (AUTO) 0.2 K/uL (0-0.4); EOSINOPHILS % (AUTO) 1.2 % (0.0-4.0); HEMATOCRIT 30.9 % (36-48); HEMOGLOBIN 9.6 g/dL (12.0-16.0); LYMPHOCYTES # (AUTO) 3.5 K/uL (2.5-16.5); MEAN CORPUSCULAR HEMOGLOBIN 24 pg (27-31); MEAN CORPUSCULAR HGB CONC 31 g/dL (33-37); MEAN CORPUSCULAR VOLUME 76.2 fL (80-94); NEUTROPHILS # (AUTO) 7.8 K/uL (1.8-7.7); NEUTROPHILS % (AUTO) 62.3 % (42.2-75.2); PLATELET COUNT (AUTO) 294 K/uL (140-450); RED BLOOD CELL COUNT(AUTO) 4.05 MIL/uL (4.20-5.40); WHITE BLOOD COUNT (AUTO) 12.6 K/uL (4.8-10.8)
--- NOTE | 2021-02-11 07:15 | NUR ---
RECEIVED REPORT FROM HIDE DROPPER FOR CONTINUITY OF CARE. PT AWAKE AND ALERT NO ACUTE DISTRESS NOTED. PT HAS RIGHT HAND 22 G NS AT 100ML/HR. SQ. SAFETY MEASURE IN PLACE. CALL LIGHT WITH IN REACH. WILL CONTINUE TO MONITOR.
[2021-02-11 07:18] LABS: ALBUMIN 2.3 g/dL (3.4-5.0); ANION GAP 9.5 (8-16); CARBON DIOXIDE 30.6 mmol/L (21-32); CREATININE 0.9 mg/dL (0.6-1.3); MAGNESIUM 2.2 mg/dL (1.8-2.4); POTASSIUM 4.1 mmol/L (3.5-5.1); TOTAL BILIRUBIN 0.2 mg/dL (0.0-1.0)
--- NOTE | 2021-02-11 07:35 | NUR ---
ENDORSED PATIENT TO MORNING SHIFT FOR CONTINUITY OF CARE. PATIENT IS STABLE.
[2021-02-11] MEDS: lisinopriL 10 MG TAB PO SCH (09:06)
[2021-02-11] MEDS: hydroCHLOROthiazide 25 MG TAB PO SCH (09:07)
[2021-02-11] MEDS: FUROSEMIDE 20 MG/2 ML VIAL IVP SCH (09:08)
[2021-02-11] MEDS: NACL 0.9% 1,000 ML IV SCH (09:09)
--- NOTE | 2021-02-11 09:11 | NUR ---
GIVEN ALL DUE MEDICATION TOLERATED WELL. NOT ON ANY DISTRESS. ALL SAFETY MEASURE IN PLACE. CALL LIGHT WITH IN REACH. WILL CONTINUE TO MONITOR.
[2021-02-11] MEDS ORDERED: CEPH-588 PO (09:19)
[2021-02-11] MEDS ORDERED: FURO-572 PO (09:19)
[2021-02-11] MEDS ORDERED: DEC4 PO (09:19)
[2021-02-11] MEDS ORDERED: ROBAC PO (09:19)
[2021-02-11] MEDS ORDERED: [UNRECOGNIZED DRUG - CODE] PO (09:24)
--- NOTE | 2021-02-11 11:48 | NUR ---
PT ALERT SITTING ON HER BED ON [place] . NOT ON ANY DISCOMFORT OR DISTRESS. IV INTACT AND RUNNING PROPERLY.
[2021-02-11] MEDS: INSULIN LISPRO SLIDING SCALE 100 UNITS/ML VIAL SUBQ PRN (12:29)
[2021-02-11] MEDS: LABETALOL 200 MG TAB PO SCH (12:29)
--- NOTE | 2021-02-11 13:10 | NUR ---
PT AWAKE ALERT NOT ON ANY DISTRESS. IV INFUSING ORDERED. NO S/S OF INFECTION OR MAL FUCTION. SAFETY MEASURE IN PLACE . CALL LIGHT WITH IN REACH. WILL CONTINUE TO MONITOR.
--- NOTE | 2021-02-11 15:10 | NUR ---
PT ALERT NO DISTRESS NOTED. READY TO GO HOME JUST WAITING FOR SISTER TO PICK HER UP. ALL SAFETY MEASURE IN PLACE. CALL LIGHT WITH IN EASY REACH.
--- NOTE | 2021-02-11 15:26 | NUR ---
PT AWAKE ALERT NOT ON ANY DISCOMFORT. DISCHARGE INFORMATION GIVEN WITH UNDERSTANDING ALL BELONGING TAKEN. WRIST BAND AND IV REMOVED IV CATHETER INTACT. WHEEL TO FRONT LOBBY PIPE SMOKER MACHINE OPERATOR BY HER SISTER ON STABLE CONDITION.
== END 2021-02-11 15:26 | disposition home or self-care (01) | DRG 141 ==
LOC: MED 14:17 → MTU 20:31
PROVIDERS: ADMIT Family Medicine; ATTEND Family Medicine
PROC: 5A09357 Assistance with Respiratory Ventilation, Less than 24 Consecutive Hours, Continuous Positive Airway Pressure (ICD-10-PCS; principal; 2021-02-09)
DX: J45.901 Unspecified asthma with (acute) exacerbation (principal); J96.00 Acute respiratory failure, unspecified whether with hypoxia or hypercapnia; E43 Unspecified severe protein-calorie malnutrition; E66.2 Morbid (severe) obesity with alveolar hypoventilation; Z68.45 Body mass index [BMI] 70 or greater, adult; I50.9 Heart failure, unspecified; E86.0 Dehydration; E11.65 Type 2 diabetes mellitus with hyperglycemia; I11.0 Hypertensive heart disease with heart failure; D64.9 Anemia, unspecified; J20.9 Acute bronchitis, unspecified; Z20.822 Contact with and (suspected) exposure to COVID-19; R09.02 Hypoxemia; N39.0 Urinary tract infection, site not specified; Z83.3 Family history of diabetes mellitus; Z86.16 Personal history of COVID-19; Z79.899 Other long term (current) drug therapy; Z79.2 Long term (current) use of antibiotics; Z79.4 Long term (current) use of insulin; Z80.9 Family history of malignant neoplasm, unspecified; Z82.49 Family history of ischemic heart disease and other diseases of the circulatory system; Z98.891 History of uterine scar from previous surgery
CPT/HCPCS: 36415; 71045; 80053; 80305; 81001; 82150; 82948; 83036; 83690; 83735; 83880; 84100; 84439; 84443; 84484; 85025; 85610; 85730; 87081; 87086; 93005; 93970; 94660; 96372; 96374; 99285; J0360; J1815; J1885; J1940; J2920; J3475; Q0092

== ENCOUNTER 2021-02-20 02:25 | Emergency (ER) | payer MEDICAID, SELFPAY ==
[~2021-02-20] VITALS: Ht 154.9 cm; Wt 181.4 kg
[~2021-02-20 02:25] MED LIST changes: -AZIT250T4 PO; +DEC4 PO; +FURO-572 PO; -PRED20TA5 PO; -PRED50TA2 PO; -PYR100 PO; -ROBAC PO; +[UNRECOGNIZED DRUG - CODE] PO
[2021-02-20 02:30] VITALS: BP 127/108
--- NOTE | 2021-02-20 04:33 | NUR ---
PT AMBUALTED TO BED #4
[2021-02-20] MEDS ORDERED: CYCLOBENZAPRINE 10 MG TAB PO ONE (04:50)
[2021-02-20] MEDS ORDERED: CYCL-711 PO (05:00)
[2021-02-20 05:36] VITALS: BP 127/108
--- NOTE | 2021-02-20 05:36 | NUR ---
Patient discharged with v/s stable. Written and verbal after care instructions given and explained. Patient alert, oriented and verbalized understanding of instructions. Ambulatory with steady gait. All questions addressed prior to discharge. ID band removed. Patient advised to follow up with PMD. Rx of FLEXERIL given. Patient educated on indication of medication including possible reaction and side effects. Opportunity to ask questions provided and answered.
--- NOTE | 2021-02-20 05:45 | NUR ---
The patient's care was reviewed and supervised by Kiley Engel RN.
== END 2021-02-20 05:36 | disposition home or self-care (01) ==
LOC: MED 02:25
DX: M62.838 Other muscle spasm (principal); J45.909 Unspecified asthma, uncomplicated; E11.9 Type 2 diabetes mellitus without complications; I10 Essential (primary) hypertension; Z79.4 Long term (current) use of insulin; Z79.899 Other long term (current) drug therapy
CPT/HCPCS: 99283

== ENCOUNTER 2021-03-01 21:41 | Emergency (ER) | payer MEDICAID ==
[~2021-03-01] VITALS: Ht 154.9 cm; Wt 183.0 kg
[~2021-03-01 21:41] MED LIST changes: +CYCL-711 PO
[2021-03-01 21:50] VITALS: BP 156/88
--- NOTE | 2021-03-01 21:51 | NUR ---
PT TAKEN TO BED 4
--- NOTE | 2021-03-01 21:55 | NUR ---
RECEIVED IN BED 4 WITH C/O CP X 2 MONTHS[address] CM = ST WITHOUT ECTOPY PMH : HTN
--- NOTE | 2021-03-01 22:20 | NUR ---
DR GOMEZ AT BEDSIDE FOR EXAM
--- NOTE | 2021-03-01 22:22 | NUR ---
Mark maher in ED - 03/01/21 at [address] Duke examining patient.
[2021-03-01] MEDS ORDERED: ALBUTEROL SULFATE/IPRATROPIU 3 ML SOL IH ONE (22:30)
[2021-03-01] MEDS ORDERED: MORPHINE SULFATE 4 MG/ML SYR IM ONE (22:30)
--- NOTE | 2021-03-01 22:33 | NUR ---
X-Ray at bedside.
--- NOTE | 2021-03-01 22:39 | NUR ---
Respiratory Therapist at bedside for respiratory intervention.
[2021-03-01 23:21] LABS: BASOPHILS % (AUTO) 0.6 % (0.0-2.0); EOSINOPHILS # (AUTO) 0.2 K/uL (0-0.4); EOSINOPHILS % (AUTO) 3.4 % (0.0-4.0); HEMATOCRIT 32.7 % (36-48); HEMOGLOBIN 10.5 g/dL (12.0-16.0); LYMPHOCYTES # (AUTO) 1.7 K/uL (2.5-16.5); LYMPHOCYTES % (AUTO) 23.3 % (20.5-51.1); MEAN CORPUSCULAR HEMOGLOBIN 24 pg (27-31); MEAN CORPUSCULAR HGB CONC 32 g/dL (33-37); MEAN CORPUSCULAR VOLUME 74.4 fL (80-94); MONOCYTES # (AUTO) 0.6 K/uL (0.8-1.0); MONOCYTES % (AUTO) 8.2 % (1.7-9.3); NEUTROPHILS # (AUTO) 4.7 K/uL (1.8-7.7); NEUTROPHILS % (AUTO) 64.5 % (42.2-75.2); PLATELET COUNT (AUTO) 261 K/uL (140-450); WHITE BLOOD COUNT (AUTO) 7.2 K/uL (4.8-10.8)
[2021-03-01 23:28] LABS: ALBUMIN 2.3 g/dL (3.4-5.0); ANION GAP 10.8 (8-16); CARBON DIOXIDE 32.9 mmol/L (21-32); CREATININE 1.1 mg/dL (0.6-1.3); POTASSIUM 4.7 mmol/L (3.5-5.1); TOTAL BILIRUBIN 0.2 mg/dL (0.0-1.0)
[2021-03-01] MEDS ORDERED: MORPHINE SULFATE 4 MG/ML SYR ONE (23:33)
[2021-03-02] MEDS ORDERED: PRED20TA5 PO (00:37)
[2021-03-02] MEDS ORDERED: ROBAC PO (00:37)
[2021-03-02] MEDS ORDERED: ALBU0.0912 IH (00:37)
[2021-03-02 00:42] VITALS: BP 135/69
--- NOTE | 2021-03-02 00:45 | NUR ---
Patient discharged with v/s stable. Written and verbal after care instructions given and explained. Patient alert, oriented and verbalized understanding of instructions. Ambulatory with steady gait. All questions addressed prior to discharge. ID band removed. Patient advised to follow up with PMD. Rx of PROVENTIL, PREDNISONE, GUAIFENESIN given. Patient educated on indication of medication including possible reaction and side effects. Opportunity to ask questions provided and answered.
== END 2021-03-02 00:45 | disposition home or self-care (01) ==
LOC: MED 21:41
DX: J44.1 Chronic obstructive pulmonary disease with (acute) exacerbation (principal); I10 Essential (primary) hypertension; E11.9 Type 2 diabetes mellitus without complications; Z79.4 Long term (current) use of insulin; Z79.899 Other long term (current) drug therapy; Z98.890 Other specified postprocedural states
CPT/HCPCS: 36415; 71045; 80053; 83880; 84484; 85025; 93005; 96372; 99285; J2270; Q0092; 94640

== ENCOUNTER 2021-03-26 11:43 | Emergency (ER) | payer MEDICAID ==
[~2021-03-26] VITALS: Ht 154.9 cm; Wt 172.4 kg
[~2021-03-26 11:43] MED LIST changes: +ALBU0.0912 IH; +AZIT250T4 PO; +DULA4.5P SQ; +FURO-570 PO; +INSU100I7 SQ; +METO25TA PO; +NIFE30TA36 PO; +PANT40EC56 PO; +PRED10TA5 PO; +PRED20TA5 PO; +PRED50TA2 PO; +PYR100 PO; +ROBAC PO; +TRAZ-343 PO
[2021-03-26 12:01] VITALS: BP 164/113
[2021-03-26 15:20] LABS: BASOPHILS # (AUTO) 0.1 K/uL (0.00-0.22); BASOPHILS % (AUTO) 1.2 % (0.0-2.0); EOSINOPHILS # (AUTO) 0.2 K/uL (0-0.4); EOSINOPHILS % (AUTO) 1.8 % (0.0-4.0); HEMATOCRIT 34.6 % (36-48); HEMOGLOBIN 10.8 g/dL (12.0-16.0); LYMPHOCYTES # (AUTO) 2.1 K/uL (2.5-16.5); LYMPHOCYTES % (AUTO) 18.3 % (20.5-51.1); MEAN CORPUSCULAR HEMOGLOBIN 23 pg (27-31); MEAN CORPUSCULAR HGB CONC 31 g/dL (33-37); MEAN CORPUSCULAR VOLUME 71.8 fL (80-94); MONOCYTES # (AUTO) 0.7 K/uL (0.8-1.0); MONOCYTES % (AUTO) 6.6 % (1.7-9.3); NEUTROPHILS # (AUTO) 8.1 K/uL (1.8-7.7); NEUTROPHILS % (AUTO) 72.1 % (42.2-75.2); PLATELET COUNT (AUTO) 271 K/uL (140-450); RED BLOOD CELL COUNT(AUTO) 4.81 MIL/uL (4.20-5.40); RED CELL DISTRIBUTION WIDTH 17.1 % (11.6-13.7); WHITE BLOOD COUNT (AUTO) 11.3 K/uL (4.8-10.8)
[2021-03-26 15:45] LABS: ALBUMIN 2.1 g/dL (3.4-5.0); ANION GAP 10.5 (8-16); CARBON DIOXIDE 30.6 mmol/L (21-32); CREATININE 1.1 mg/dL (0.6-1.3); POTASSIUM 5.1 mmol/L (3.5-5.1); TOTAL BILIRUBIN 0.2 mg/dL (0.0-1.0)
[2021-03-26] MEDS: ALBUTEROL SULFATE/IPRATROPIU 3 ML SOL IH ONE (17:44)
--- NOTE | 2021-03-26 17:44 | NUR ---
[facility] THERAPY AND RESPIRATORY DRUG GIVEN ORDERED ENCOURAGED PATIENT FOR INTERMITTENT DEEP BREATHING DURING THERAPY
[2021-03-26] MEDS: KETOROLAC 30 MG/ML VIAL IM ONE (18:03)
[2021-03-26 18:12] VITALS: BP 164/113
--- NOTE | 2021-03-26 18:12 | NUR ---
Patient discharged with v/s stable. Written and verbal after care instructions given and explained. Patient alert, oriented and verbalized understanding of instructions. Ambulatory with steady gait. All questions addressed prior to discharge. ID band removed. Patient advised to follow up with PMD. Rx of ASTHMA, COPD given. Patient educated on indication of medication including possible reaction and side effects. Opportunity to ask questions provided and answered.
== END 2021-03-26 18:12 | disposition home or self-care (01) ==
LOC: MED 11:43
DX: J44.1 Chronic obstructive pulmonary disease with (acute) exacerbation (principal); E11.9 Type 2 diabetes mellitus without complications; I10 Essential (primary) hypertension; Z79.899 Other long term (current) drug therapy
CPT/HCPCS: 36415; 71045; 80053; 83880; 84484; 85025; 85379; 93005; 94640; 96372; 99285; J1885

== ENCOUNTER 2022-03-20 20:27 | Emergency (ER) | payer MEDICAID ==
[~2022-03-20] VITALS: Ht 154.9 cm; Wt 181.4 kg
[~2022-03-20 20:27] MED LIST changes: -ACET-10509 PO; -ALBU0.0912 IH; -AZIT250T4 PO; -BENZ-196 PO; -CEPH-588 PO; -CYCL-711 PO; -DEC4 PO; -FURO-572 PO; -IBUP-2213 PO; -LISI-486 PO; -PRED20TA5 PO; -PRED50TA2 PO; -PRON INH; -PYR100 PO; -ROBAC PO; -TRA200 PO; -[UNRECOGNIZED DRUG - CODE] PO
[2022-03-20 20:45] VITALS: BP 160/90
[2022-03-20 21:27] LABS: BASOPHILS # (AUTO) 0.1 K/uL (0.00-0.22); BASOPHILS % (AUTO) 0.9 % (0.0-2.0); EOSINOPHILS # (AUTO) 0.2 K/uL (0-0.4); EOSINOPHILS % (AUTO) 2.1 % (0.0-4.0); HEMATOCRIT 38.6 % (36-48); HEMOGLOBIN 12.2 g/dL (12.0-16.0); LYMPHOCYTES # (AUTO) 1.5 K/uL (2.5-16.5); LYMPHOCYTES % (AUTO) 18.2 % (20.5-51.1); MEAN CORPUSCULAR HEMOGLOBIN 25 pg (27-31); MEAN CORPUSCULAR HGB CONC 32 g/dL (33-37); MEAN CORPUSCULAR VOLUME 78.6 fL (80-94); MONOCYTES # (AUTO) 0.5 K/uL (0.8-1.0); MONOCYTES % (AUTO) 6.7 % (1.7-9.3); NEUTROPHILS # (AUTO) 5.9 K/uL (1.8-7.7); NEUTROPHILS % (AUTO) 72.1 % (42.2-75.2); PLATELET COUNT (AUTO) 272 K/uL (140-450); RED BLOOD CELL COUNT(AUTO) 4.92 MIL/uL (4.20-5.40); RED CELL DISTRIBUTION WIDTH 16.7 % (11.6-13.7); WHITE BLOOD COUNT (AUTO) 8.2 K/uL (4.8-10.8)
[2022-03-20 22:03] LABS: ALBUMIN 1.9 g/dL (3.4-5.0); ANION GAP 7.4 (8-16); ASPARTATE AMINOTRANSFERASE 8 U/L (15-37); CARBON DIOXIDE 34.3 mmol/L (21-32); CHLORIDE 89 mmol/L (98-107); CREATININE 1.5 mg/dL (0.6-1.3); GFR ARICAN-AMERICAN 50 mL/min (>90); POTASSIUM 4.7 mmol/L (3.5-5.1); SODIUM SERUM 126 mmol/L (136-145); TOTAL BILIRUBIN 0.2 mg/dL (0.0-1.0); UREA NITROGEN, BLOOD 35 mg/dL (7-18)
[2022-03-20 22:06] LABS: GLUCOSE 698 mg/dL (74-106)
--- NOTE | 2022-03-20 23:15 | NUR ---
PT AMBULATED TO BED #10
[2022-03-20 23:27] VITALS: BP 144/75
[2022-03-20] MEDS ORDERED: NACL 0.9% 2,000 ML IV ONE (23:30)
--- NOTE | 2022-03-20 23:40 | NUR ---
Dr. Duke examining patient.
[2022-03-20] MEDS ORDERED: ACETAMIN/CODEINE 120/12MG-5ML 5 ML UDC PO ONE (23:50)
--- NOTE | 2022-03-21 01:18 | NUR ---
Assisted to restroom. Gait steady.
[2022-03-21] MEDS ORDERED: INSULIN REGULAR, HUMAN 100 UNIT/ML VIAL IVP ONE (01:20)
--- NOTE | 2022-03-21 01:35 | NUR ---
Blood sugar was rechecked is >600. 10 units of insulin given as ordered. . IV bolus continues infusing.
--- NOTE | 2022-03-21 02:35 | NUR ---
Blood sugar rechecked <500. Alert and responsive. IV fluids infusing.
--- NOTE | 2022-03-21 03:34 | NUR ---
Accblueeck done. 489. Dr. Duke made aware.
[2022-03-21] MEDS ORDERED: ALBU0.0912 IH (03:38)
[2022-03-21] MEDS ORDERED: ROBAC PO (03:38)
--- NOTE | 2022-03-21 03:56 | NUR ---
Patient discharged with v/s stable. Written and verbal after care instructions given and explained. Patient verbalized understanding. Ambulatory with steady gait. All questions addressed prior to discharge. Advised to follow up with PMD.
== END 2022-03-21 03:56 | disposition home or self-care (01) ==
LOC: MED 20:27
DX: U07.1 COVID-19 (principal); E11.65 Type 2 diabetes mellitus with hyperglycemia; I10 Essential (primary) hypertension; J44.9 Chronic obstructive pulmonary disease, unspecified; Z79.4 Long term (current) use of insulin; Z79.899 Other long term (current) drug therapy; Z98.890 Other specified postprocedural states
CPT/HCPCS: 36415; 71045; 80053; 81025; 84484; 85025; 87426; 96361; 96374; 99285; J1815; Q0092

== ENCOUNTER 2022-11-01 21:53 | Emergency (ER) | payer MEDICAID ==
[~2022-11-01] VITALS: Ht 154.9 cm; Wt 163.7 kg
[~2022-11-01 21:53] MED LIST changes: +ALBU0.0912 IH; +ROBAC PO
[2022-11-01 21:58] VITALS: BP 182/110; PULSE 94; RESP 20; TEMP 97.4; O2SAT 100
[2022-11-01 22:19] VITALS: O2SAT 98
[2022-11-01 22:27] VITALS: BP 147/75; PULSE 87; RESP 18; O2SAT 98
[2022-11-01] MEDS ORDERED: ACETAMINOPHEN EXTRA STRENGTH 500 MG TAB PO ONE (23:00)
[2022-11-01] MEDS ORDERED: ACET-10509 PO (23:30)
== END 2022-11-01 23:35 | disposition home or self-care (01) ==
LOC: MED 21:53
DX: S93.601A Unspecified sprain of right foot, initial encounter (principal); E66.9 Obesity, unspecified; J96.10 Chronic respiratory failure, unspecified whether with hypoxia or hypercapnia; E11.22 Type 2 diabetes mellitus with diabetic chronic kidney disease; I13.2 Hypertensive heart and chronic kidney disease with heart failure and with stage 5 chronic kidney disease, or end stage renal disease; I50.9 Heart failure, unspecified; N18.6 End stage renal disease; J45.909 Unspecified asthma, uncomplicated; Z99.2 Dependence on renal dialysis; Z79.899 Other long term (current) drug therapy; Z79.4 Long term (current) use of insulin; X50.1XXA Overexertion from prolonged static or awkward postures, initial encounter; Y93.01 Activity, walking, marching and hiking; Y92.89 Other specified places as the place of occurrence of the external cause; Y99.8 Other external cause status
CPT/HCPCS: 73630; 99283; Q0092

== ENCOUNTER 2023-01-02 14:27 | Inpatient (IN) | payer MEDICAID ==
[~2023-01-02] VITALS: Ht 154.9 cm; Wt 163.3 kg
[~2023-01-02 14:27] MED LIST changes: +ACET-10509 PO
[2023-01-02 14:35] VITALS: BP 118/49; PULSE 94; RESP 20; TEMP 98; O2SAT 95
[2023-01-02] MEDS ORDERED: ACETAMINOPHEN 325 MG TAB PO ONE (14:50)
[2023-01-02] MEDS ORDERED: cefTRIAXone 1,000 MG in DEXT 5% MINI-BAG PLUS 50 ML IV ONE (14:50)
[2023-01-02 15:44] LABS: BASOPHILS % (AUTO) 0.6 % (0.0-2.0); EOSINOPHILS % (AUTO) 0.4 % (0.0-4.0); HEMATOCRIT 35.6 % (36-48); HEMOGLOBIN 11.6 g/dL (12.0-16.0); LYMPHOCYTES # (AUTO) 0.9 K/uL (2.5-16.5); LYMPHOCYTES % (AUTO) 13.2 % (20.5-51.1); MEAN CORPUSCULAR HEMOGLOBIN 27 pg (27-31); MEAN CORPUSCULAR HGB CONC 33 g/dL (33-37); MEAN CORPUSCULAR VOLUME 82.4 fL (80-94); MONOCYTES # (AUTO) 0.7 K/uL (0.8-1.0); MONOCYTES % (AUTO) 10.4 % (1.7-9.3); NEUTROPHILS # (AUTO) 5.1 K/uL (1.8-7.7); NEUTROPHILS % (AUTO) 75.4 % (42.2-75.2); PLATELET COUNT (AUTO) 190 K/uL (140-450); RED BLOOD CELL COUNT(AUTO) 4.32 MIL/uL (4.20-5.40); RED CELL DISTRIBUTION WIDTH 15.6 % (11.6-13.7); WHITE BLOOD COUNT (AUTO) 6.7 K/uL (4.8-10.8)
[2023-01-02] MEDS ORDERED: cefTRIAXone 1,000 MG VIAL ONE (16:03)
[2023-01-02] MEDS ORDERED: ACETAMINOPHEN 325 MG TAB ONE (16:04)
[2023-01-02] MEDS: NACL 0.9% 500 ML IV SCH ×2 (16:05→16:13)
[2023-01-02 16:08] LABS: ALBUMIN 2.3 g/dL (3.4-5.0); ANION GAP 11.2 (8-16); CALCIUM 8.3 mg/dL (8.5-10.1); CARBON DIOXIDE 26.3 mmol/L (21-32); CREATININE 2.8 mg/dL (0.6-1.3); INR 1.06 (0.8-1.2); PARTIAL THROMBOPLASTIN TIME 32.3 secs (22-35.6); POTASSIUM 4.5 mmol/L (3.5-5.1); PROTHROMBIN TIME 11.1 secs (10.8-13.4); TOTAL BILIRUBIN 0.5 mg/dL (0.0-1.0); TOTAL PROTEIN, SERUM 8.2 g/dL (6.4-8.2)
[2023-01-02 16:12] LABS: LACTIC ACID 1.6 mmol/L (0.4-2.0)
[2023-01-02 19:19] VITALS: O2SAT 94
[2023-01-02] MEDS ORDERED: ONDANSETRON 4 MG/2 ML VIAL IM/IVP PRN (19:50)
[2023-01-02] MEDS ORDERED: guaiFENesin DM 200/20 MG-10 ML 10 ML UDC PO PRN (19:50)
[2023-01-02] MEDS ORDERED: HYDROcodone/APAP 7.5/325 MG 1 TAB PO PRN (19:50)
[2023-01-02] MEDS ORDERED: POTASSIUM CHLORIDE 10 MEQ TABER PO PRN (19:50)
[2023-01-02] MEDS ORDERED: DOCUSATE SODIUM 100 MG GELCAP PO PRN (19:50)
[2023-01-02] MEDS ORDERED: ZOLPIDEM 5 MG TAB PO PRN (19:50)
[2023-01-02 20:28] LABS: APPEARANCE,URINE CLEAR (CLEAR); BILIRUBIN,URINE 1+ (NEGATIVE); BLOOD, URINE TRACE-I (NEGATIVE); COLOR,URINE YELLOW (YELLOW); LEUKOCYTE ESTERASE ,URINE TRACE (NEGATIVE); NITRITE, URINE NEGATIVE (NEGATIVE); PROTEIN,URINE 3+ (NEGATIVE); UGLUCOSE TRACE (NEGATIVE)
[2023-01-02 20:47] LABS: ICTOTEST NEGATIVE (NEGATIVE)
[2023-01-02 20:50] LABS: CHOL/HDL RATIO 4.3 (1-4.5); FREE T4 (FREE THYROXINE) 1.15 ng/dL (0.76-1.46); MAGNESIUM 1.9 mg/dL (1.8-2.4); PHOSPHORUS 3.6 mg/dL (2.5-4.9); THYROID STIMULATING HORMONE 1.55 uIU/mL (0.34-3.74)
[2023-01-02 20:51] LABS: BACTERIA,URINE 2+ /HPF (None Seen); RBC,URINE 0-5 /HPF (0-5)
[2023-01-02 20:52] LABS: SQUAMOUS EPITHELIAL CELL,UR 4-10 (MOD) /LPF (0-3 (FEW))
[2023-01-02 21:45] VITALS: BP 156/85; PULSE 87; RESP 20; TEMP 98.7; O2SAT 100
[2023-01-02 23:04] VITALS: PULSE 92; RESP 25; O2SAT 96
[2023-01-03 01:07] VITALS: PULSE 94; O2SAT 96
[2023-01-03 06:31] LABS: AMPHETAMINE, URINE NEGATIVE ng/ml (NEG <=1000); BARBITURATE, URINE NEGATIVE ng/ml (NEG <=200); BENZODIAZEPINE, URINE NEGATIVE ng/mL (NEG <=200); CANNABINOID, URINE NEGATIVE ng/mL (NEG <=50); COCAINE, URINE NEGATIVE ng/mL (NEG <=300); OPIATE, URINE NEGATIVE ng/mL (NEG <=2000); PHENCYCLIDINE SCREEN,URINE NEGATIVE ng/mL (NEG <=25)
[2023-01-03 07:02] LABS: ANION GAP 13.3 (8-16); CALCIUM 8.3 mg/dL (8.5-10.1); CARBON DIOXIDE 26.5 mmol/L (21-32); CREATININE 2.5 mg/dL (0.6-1.3); POTASSIUM 4.8 mmol/L (3.5-5.1)
[2023-01-03 07:24] LABS: BASOPHILS # (AUTO) 0.1 K/uL (0.00-0.22); BASOPHILS % (AUTO) 0.6 % (0.0-2.0); EOSINOPHILS % (AUTO) 0.3 % (0.0-4.0); HEMATOCRIT 34.8 % (36-48); HEMOGLOBIN 11.1 g/dL (12.0-16.0); LYMPHOCYTES # (AUTO) 1.1 K/uL (2.5-16.5); LYMPHOCYTES % (AUTO) 14.6 % (20.5-51.1); MEAN CORPUSCULAR HEMOGLOBIN 27 pg (27-31); MEAN CORPUSCULAR HGB CONC 32 g/dL (33-37); MEAN CORPUSCULAR VOLUME 82.8 fL (80-94); MONOCYTES # (AUTO) 0.8 K/uL (0.8-1.0); MONOCYTES % (AUTO) 10.6 % (1.7-9.3); NEUTROPHILS # (AUTO) 5.8 K/uL (1.8-7.7); NEUTROPHILS % (AUTO) 73.9 % (42.2-75.2); PLATELET COUNT (AUTO) 187 K/uL (140-450); RED CELL DISTRIBUTION WIDTH 15.5 % (11.6-13.7); WHITE BLOOD COUNT (AUTO) 7.8 K/uL (4.8-10.8)
[2023-01-03 08:00] VITALS: BP 147/55; PULSE 102; PULSE 92; PULSE 95; RESP 18; TEMP 98.9; O2SAT 100; O2SAT 94
[2023-01-03] MEDS: PANTOPRAZOLE 40 MG TABEC PO SCH (09:51)
[2023-01-03 16:00] VITALS: BP 129/72; PULSE 90; RESP 18; TEMP 98.6; O2SAT 92
[2023-01-03 16:12] VITALS: O2SAT 97
[2023-01-03] MEDS: ACETAMINOPHEN 325 MG TAB PO PRN (17:14)
[2023-01-03 20:00] VITALS: BP 112/58; PULSE 80; RESP 18; TEMP 98.5; O2SAT 100; O2SAT 98
[2023-01-04] VITALS (7 sets, daily range): BP systolic 105–148; BP diastolic 53–62; PULSE 76–95; RESP 18; TEMP 98.3–99.2; O2SAT 83–100
[2023-01-04 07:21] LABS: BASOPHILS # (AUTO) 0.1 K/uL (0.00-0.22); BASOPHILS % (AUTO) 0.6 % (0.0-2.0); EOSINOPHILS # (AUTO) 0.1 K/uL (0-0.4); EOSINOPHILS % (AUTO) 0.6 % (0.0-4.0); HEMATOCRIT 33.8 % (36-48); HEMOGLOBIN 11.2 g/dL (12.0-16.0); LYMPHOCYTES % (AUTO) 11.1 % (20.5-51.1); MEAN CORPUSCULAR HEMOGLOBIN 27 pg (27-31); MEAN CORPUSCULAR HGB CONC 33 g/dL (33-37); MEAN CORPUSCULAR VOLUME 82.2 fL (80-94); MONOCYTES # (AUTO) 0.8 K/uL (0.8-1.0); MONOCYTES % (AUTO) 8.7 % (1.7-9.3); NEUTROPHILS # (AUTO) 6.9 K/uL (1.8-7.7); PLATELET COUNT (AUTO) 197 K/uL (140-450); RED BLOOD CELL COUNT(AUTO) 4.11 MIL/uL (4.20-5.40); RED CELL DISTRIBUTION WIDTH 15.2 % (11.6-13.7); WHITE BLOOD COUNT (AUTO) 8.7 K/uL (4.8-10.8)
[2023-01-04 07:31] LABS: ANION GAP 12.8 (8-16); CALCIUM 8.2 mg/dL (8.5-10.1); CARBON DIOXIDE 26.3 mmol/L (21-32); CREATININE 2.2 mg/dL (0.6-1.3); POTASSIUM 5.1 mmol/L (3.5-5.1)
[2023-01-04 09:07] LABS: T4 (THYROXINE) 6.3 ug/dL (4.5-12.0)
[2023-01-04] MEDS: PANTOPRAZOLE 40 MG TABEC PO SCH (10:39)
[2023-01-04] MEDS: ACETAMINOPHEN 325 MG TAB PO PRN (14:40)
[2023-01-04] MEDS: CHLORHEXADINE GLUC 2% CLOTH TP SCH (16:00)
[2023-01-04] MEDS ORDERED: MORPHINE SULFATE 4 MG/ML SYR IVP ONE (17:45)
[2023-01-04] MEDS ORDERED: MORPHINE SULFATE 4 MG/ML SYR ONE (17:45)
[2023-01-04] MEDS: MUPIROCIN CA NASAL 2% 1GM TUBE NS SCH (17:47)
[2023-01-04] MEDS ORDERED: VANCOMYCIN PER PHARMACY MC PRN (18:00)
[2023-01-04] MEDS ORDERED: SODIUM ZIRCONIUM CYCLOSILICATE 10 GM POWD.PACK PO SCH (18:42)
[2023-01-04] MEDS ORDERED: VANCOMYCIN 1,000 MG in DEXTROSE 5% 250 ML IV SCH (21:00)
[2023-01-05] VITALS: BP 138/78; PULSE 81; RESP 18; TEMP 98.5; O2SAT 93
[2023-01-05 06:59] LABS: BASOPHILS # (AUTO) 0.1 K/uL (0.00-0.22); BASOPHILS % (AUTO) 0.8 % (0.0-2.0); EOSINOPHILS # (AUTO) 0.3 K/uL (0-0.4); EOSINOPHILS % (AUTO) 3.6 % (0.0-4.0); HEMATOCRIT 33.1 % (36-48); HEMOGLOBIN 10.9 g/dL (12.0-16.0); LYMPHOCYTES # (AUTO) 1.3 K/uL (2.5-16.5); LYMPHOCYTES % (AUTO) 17.1 % (20.5-51.1); MEAN CORPUSCULAR HEMOGLOBIN 27 pg (27-31); MEAN CORPUSCULAR HGB CONC 33 g/dL (33-37); MEAN CORPUSCULAR VOLUME 82.4 fL (80-94); MONOCYTES # (AUTO) 0.8 K/uL (0.8-1.0); MONOCYTES % (AUTO) 10.6 % (1.7-9.3); NEUTROPHILS # (AUTO) 5.1 K/uL (1.8-7.7); NEUTROPHILS % (AUTO) 67.9 % (42.2-75.2); PLATELET COUNT (AUTO) 194 K/uL (140-450); RED BLOOD CELL COUNT(AUTO) 4.01 MIL/uL (4.20-5.40); RED CELL DISTRIBUTION WIDTH 15.5 % (11.6-13.7); WHITE BLOOD COUNT (AUTO) 7.5 K/uL (4.8-10.8)
[2023-01-05 07:13] LABS: ANION GAP 11.2 (8-16); CALCIUM 8.2 mg/dL (8.5-10.1); CARBON DIOXIDE 28.1 mmol/L (21-32); CREATININE 2.5 mg/dL (0.6-1.3); POTASSIUM 4.3 mmol/L (3.5-5.1)
[2023-01-05 08:00] VITALS: BP 149/68; PULSE 86; RESP 18; TEMP 98; O2SAT 98
[2023-01-05] MEDS: PANTOPRAZOLE 40 MG TABEC PO SCH (09:34)
[2023-01-05] MEDS ORDERED: DEXTROSE 50% 50 ML SYR IVP PRN (12:15)
[2023-01-05] MEDS ORDERED: LIDOCAINE 1% 500 MG/ 50 ML VIAL INJ SCH (13:54)
[2023-01-05 16:00] VITALS: BP 123/79; PULSE 78; RESP 18; TEMP 97.6; O2SAT 98
[2023-01-05] MEDS: CHLORHEXADINE GLUC 2% CLOTH TP SCH (16:00)
[2023-01-05] MEDS: BLOOD GLUCOSE MONITORING 1 DEV DEV FS SCH ×2 (16:30→20:43)
[2023-01-05] MEDS: MUPIROCIN CA NASAL 2% 1GM TUBE NS SCH (16:30)
[2023-01-05] MEDS: INSULIN LISPRO SLIDING SCALE 100 UNITS/ML VIAL SUBQ PRN ×2 (17:52→20:41)
[2023-01-05 20:00] VITALS: BP 113/69; PULSE 80; RESP 18; TEMP 97.5; O2SAT 94
[2023-01-05] MEDS: INSULIN LANTUS 100 UNITS/ML 10 ML VIAL SUBQ SCH (20:42)
[2023-01-05 20:58] VITALS: PULSE 84; RESP 20; O2SAT 94
[2023-01-06 02:38] VITALS: PULSE 94; O2SAT 97
[2023-01-06] MEDS: BLOOD GLUCOSE MONITORING 1 DEV DEV FS SCH ×4 (06:39→21:20)
[2023-01-06] MEDS: INSULIN LISPRO SLIDING SCALE 100 UNITS/ML VIAL SUBQ PRN ×4 (06:41→21:18)
[2023-01-06 06:55] LABS: BASOPHILS # (AUTO) 0.1 K/uL (0.00-0.22); BASOPHILS % (AUTO) 0.7 % (0.0-2.0); EOSINOPHILS # (AUTO) 0.4 K/uL (0-0.4); EOSINOPHILS % (AUTO) 4.9 % (0.0-4.0); HEMATOCRIT 35.3 % (36-48); HEMOGLOBIN 11.6 g/dL (12.0-16.0); LYMPHOCYTES # (AUTO) 2.3 K/uL (2.5-16.5); LYMPHOCYTES % (AUTO) 29.3 % (20.5-51.1); MEAN CORPUSCULAR HEMOGLOBIN 27 pg (27-31); MEAN CORPUSCULAR HGB CONC 33 g/dL (33-37); MEAN CORPUSCULAR VOLUME 82.7 fL (80-94); MONOCYTES # (AUTO) 0.8 K/uL (0.8-1.0); MONOCYTES % (AUTO) 9.9 % (1.7-9.3); NEUTROPHILS # (AUTO) 4.3 K/uL (1.8-7.7); NEUTROPHILS % (AUTO) 55.2 % (42.2-75.2); PLATELET COUNT (AUTO) 280 K/uL (140-450); RED BLOOD CELL COUNT(AUTO) 4.27 MIL/uL (4.20-5.40); RED CELL DISTRIBUTION WIDTH 15.4 % (11.6-13.7); WHITE BLOOD COUNT (AUTO) 7.9 K/uL (4.8-10.8)
[2023-01-06 07:02] LABS: CALCIUM 8.6 mg/dL (8.5-10.1); CARBON DIOXIDE 28.3 mmol/L (21-32); CREATININE 2.2 mg/dL (0.6-1.3); POTASSIUM 4.3 mmol/L (3.5-5.1)
[2023-01-06 08:00] VITALS: BP 119/72; PULSE 83; RESP 18; TEMP 98.2; O2SAT 94; O2SAT 98
[2023-01-06] MEDS: PANTOPRAZOLE 40 MG TABEC PO SCH (09:00)
[2023-01-06] MEDS: MORPHINE SULFATE 2 MG/ML SYR IVP PRN ×3 (10:13→20:42)
[2023-01-06] MEDS ORDERED: VANCOMYCIN 1,000 MG in NACL 0.9% 250 ML IV SCH (11:00)
[2023-01-06 16:00] VITALS: BP 135/72; PULSE 87; RESP 18; TEMP 98.7; O2SAT 98
[2023-01-06] MEDS: CHLORHEXADINE GLUC 2% CLOTH TP SCH (16:00)
[2023-01-06] MEDS: MUPIROCIN CA NASAL 2% 1GM TUBE NS SCH (17:40)
[2023-01-06 20:00] VITALS: BP 151/87; PULSE 83; RESP 18; TEMP 98.7; O2SAT 98
[2023-01-06] MEDS: INSULIN LANTUS 100 UNITS/ML 10 ML VIAL SUBQ SCH (21:17)
[2023-01-07] VITALS (7 sets, daily range): BP systolic 119–151; BP diastolic 72–87; PULSE 76–88; RESP 18–20; TEMP 97.4–98.2; O2SAT 95–99
[2023-01-07 06:22] LABS: BASOPHILS # (AUTO) 0.1 K/uL (0.00-0.22); BASOPHILS % (AUTO) 0.8 % (0.0-2.0); EOSINOPHILS # (AUTO) 0.4 K/uL (0-0.4); EOSINOPHILS % (AUTO) 4.3 % (0.0-4.0); HEMATOCRIT 32.5 % (36-48); HEMOGLOBIN 10.6 g/dL (12.0-16.0); LYMPHOCYTES % (AUTO) 23.2 % (20.5-51.1); MEAN CORPUSCULAR HEMOGLOBIN 27 pg (27-31); MEAN CORPUSCULAR HGB CONC 33 g/dL (33-37); MEAN CORPUSCULAR VOLUME 82.5 fL (80-94); MONOCYTES # (AUTO) 0.6 K/uL (0.8-1.0); MONOCYTES % (AUTO) 7.7 % (1.7-9.3); NEUTROPHILS # (AUTO) 5.4 K/uL (1.8-7.7); PLATELET COUNT (AUTO) 275 K/uL (140-450); RED BLOOD CELL COUNT(AUTO) 3.94 MIL/uL (4.20-5.40); RED CELL DISTRIBUTION WIDTH 15.2 % (11.6-13.7); WHITE BLOOD COUNT (AUTO) 8.4 K/uL (4.8-10.8)
[2023-01-07 06:38] LABS: ANION GAP 11.7 (8-16); CALCIUM 8.3 mg/dL (8.5-10.1); CARBON DIOXIDE 29.1 mmol/L (21-32); CREATININE 2.4 mg/dL (0.6-1.3); POTASSIUM 4.8 mmol/L (3.5-5.1)
[2023-01-07] MEDS: BLOOD GLUCOSE MONITORING 1 DEV DEV FS SCH ×4 (06:42→20:15)
[2023-01-07] MEDS: INSULIN LISPRO SLIDING SCALE 100 UNITS/ML VIAL SUBQ PRN ×3 (06:45→20:33)
[2023-01-07] MEDS: MORPHINE SULFATE 2 MG/ML SYR IVP PRN ×2 (06:48→20:22)
[2023-01-07] MEDS: PANTOPRAZOLE 40 MG TABEC PO SCH (09:49)
[2023-01-07] MEDS: CHLORHEXADINE GLUC 2% CLOTH TP SCH (16:00)
[2023-01-07] MEDS: MUPIROCIN CA NASAL 2% 1GM TUBE NS SCH (17:42)
[2023-01-07] MEDS: INSULIN LANTUS 100 UNITS/ML 10 ML VIAL SUBQ SCH (20:31)
[2023-01-07] MEDS ORDERED: VANCOMYCIN 1,000 MG in DEXTROSE 5% 250 ML IV SCH (21:00)
[2023-01-08 04:00] VITALS: BP 153/91; PULSE 92; RESP 18; TEMP 97; O2SAT 99
[2023-01-08 06:25] LABS: BASOPHILS # (AUTO) 0.1 K/uL (0.00-0.22); BASOPHILS % (AUTO) 0.8 % (0.0-2.0); EOSINOPHILS # (AUTO) 0.5 K/uL (0-0.4); EOSINOPHILS % (AUTO) 5.2 % (0.0-4.0); HEMATOCRIT 31.5 % (36-48); HEMOGLOBIN 10.3 g/dL (12.0-16.0); LYMPHOCYTES # (AUTO) 2.7 K/uL (2.5-16.5); LYMPHOCYTES % (AUTO) 28.5 % (20.5-51.1); MEAN CORPUSCULAR HEMOGLOBIN 27 pg (27-31); MEAN CORPUSCULAR HGB CONC 33 g/dL (33-37); MEAN CORPUSCULAR VOLUME 82.2 fL (80-94); MONOCYTES # (AUTO) 0.6 K/uL (0.8-1.0); MONOCYTES % (AUTO) 6.5 % (1.7-9.3); NEUTROPHILS # (AUTO) 5.5 K/uL (1.8-7.7); PLATELET COUNT (AUTO) 311 K/uL (140-450); RED BLOOD CELL COUNT(AUTO) 3.83 MIL/uL (4.20-5.40); RED CELL DISTRIBUTION WIDTH 15.6 % (11.6-13.7); WHITE BLOOD COUNT (AUTO) 9.3 K/uL (4.8-10.8)
[2023-01-08] MEDS: BLOOD GLUCOSE MONITORING 1 DEV DEV FS SCH ×4 (06:27→20:12)
[2023-01-08 06:52] LABS: ANION GAP 12.1 (8-16); CALCIUM 8.3 mg/dL (8.5-10.1); CARBON DIOXIDE 28.6 mmol/L (21-32); CREATININE 1.6 mg/dL (0.6-1.3); POTASSIUM 4.7 mmol/L (3.5-5.1)
[2023-01-08 08:00] VITALS: PULSE 86; RESP 18; TEMP 97; O2SAT 100
[2023-01-08 08:31] VITALS: PULSE 83; RESP 19; O2SAT 98
[2023-01-08] MEDS: PANTOPRAZOLE 40 MG TABEC PO SCH (09:16)
[2023-01-08] MEDS: INSULIN LISPRO SLIDING SCALE 100 UNITS/ML VIAL SUBQ PRN ×2 (12:13→20:11)
[2023-01-08 14:25] LABS: INR 0.97 (0.8-1.2); PARTIAL THROMBOPLASTIN TIME 28.3 secs (22-35.6); PROTHROMBIN TIME 10.2 secs (10.8-13.4)
[2023-01-08 16:00] VITALS: BP 127/52; PULSE 77; RESP 18; TEMP 98.1; O2SAT 98
[2023-01-08] MEDS: MUPIROCIN CA NASAL 2% 1GM TUBE NS SCH (16:49)
[2023-01-08] MEDS: CHLORHEXADINE GLUC 2% CLOTH TP SCH (16:50)
[2023-01-08 19:30] VITALS: O2SAT 98
[2023-01-08 20:00] VITALS: BP 150/69; PULSE 85; RESP 18; RESP 20; TEMP 96.7; O2SAT 94
[2023-01-08] MEDS: INSULIN LANTUS 100 UNITS/ML 10 ML VIAL SUBQ SCH (20:10)
[2023-01-09 04:00] VITALS: BP 137/64; PULSE 90; RESP 18; TEMP 96.7; O2SAT 94
[2023-01-09] MEDS: MORPHINE SULFATE 2 MG/ML SYR IVP PRN (06:23)
[2023-01-09] MEDS: BLOOD GLUCOSE MONITORING 1 DEV DEV FS SCH ×4 (06:38→20:41)
[2023-01-09 06:59] LABS: BASOPHILS # (AUTO) 0.1 K/uL (0.00-0.22); BASOPHILS % (AUTO) 0.6 % (0.0-2.0); EOSINOPHILS # (AUTO) 0.4 K/uL (0-0.4); EOSINOPHILS % (AUTO) 4.4 % (0.0-4.0); HEMATOCRIT 31.7 % (36-48); HEMOGLOBIN 10.3 g/dL (12.0-16.0); LYMPHOCYTES # (AUTO) 2.1 K/uL (2.5-16.5); LYMPHOCYTES % (AUTO) 24.3 % (20.5-51.1); MEAN CORPUSCULAR HEMOGLOBIN 27 pg (27-31); MEAN CORPUSCULAR HGB CONC 32 g/dL (33-37); MEAN CORPUSCULAR VOLUME 83.6 fL (80-94); MONOCYTES # (AUTO) 0.6 K/uL (0.8-1.0); MONOCYTES % (AUTO) 6.7 % (1.7-9.3); NEUTROPHILS # (AUTO) 5.5 K/uL (1.8-7.7); PLATELET COUNT (AUTO) 332 K/uL (140-450); RED BLOOD CELL COUNT(AUTO) 3.79 MIL/uL (4.20-5.40); RED CELL DISTRIBUTION WIDTH 15.3 % (11.6-13.7); WHITE BLOOD COUNT (AUTO) 8.6 K/uL (4.8-10.8)
[2023-01-09 07:02] LABS: ANION GAP 9.9 (8-16); CALCIUM 8.2 mg/dL (8.5-10.1); CARBON DIOXIDE 31.2 mmol/L (21-32); CREATININE 1.4 mg/dL (0.6-1.3); POTASSIUM 5.1 mmol/L (3.5-5.1)
[2023-01-09 07:22] VITALS: PULSE 88; RESP 21; O2SAT 97
[2023-01-09 08:00] VITALS: BP 111/58; PULSE 84; PULSE 89; RESP 18; TEMP 98; O2SAT 98
[2023-01-09] MEDS: PANTOPRAZOLE 40 MG TABEC PO SCH (09:04)
[2023-01-09] MEDS ORDERED: VANCOMYCIN 1,000 MG in DEXTROSE 5% 250 ML IV SCH (10:00)
[2023-01-09 16:00] VITALS: BP 139/75; PULSE 85; RESP 18; TEMP 97.8; O2SAT 99
[2023-01-09] MEDS: INSULIN LISPRO SLIDING SCALE 100 UNITS/ML VIAL SUBQ PRN ×3 (16:38→20:40)
[2023-01-09 19:55] VITALS: O2SAT 99
[2023-01-09 20:00] VITALS: BP 137/86; PULSE 82; RESP 20; TEMP 96.9; O2SAT 98
[2023-01-09] MEDS: INSULIN LANTUS 100 UNITS/ML 10 ML VIAL SUBQ SCH (20:38)
[2023-01-10] MEDS: ACETAMINOPHEN 325 MG TAB PO PRN (00:08)
[2023-01-10] MEDS: BLOOD GLUCOSE MONITORING 1 DEV DEV FS SCH ×4 (06:37→20:43)
[2023-01-10 07:09] LABS: ANION GAP 12.8 (8-16); CALCIUM 8.5 mg/dL (8.5-10.1); CARBON DIOXIDE 29.2 mmol/L (21-32); CREATININE 1.4 mg/dL (0.6-1.3)
[2023-01-10 08:00] VITALS: BP 127/56; PULSE 84; RESP 20; TEMP 96.6; O2SAT 99
[2023-01-10 08:37] VITALS: PULSE 89; RESP 24; O2SAT 94
[2023-01-10] MEDS: PANTOPRAZOLE 40 MG TABEC PO SCH (09:13)
[2023-01-10] MEDS ORDERED: ALBUTEROL SULFATE/IPRATROPIU 3 ML SOL IH PRN (10:30)
[2023-01-10] MEDS: INSULIN LISPRO SLIDING SCALE 100 UNITS/ML VIAL SUBQ PRN ×3 (11:35→20:41)
[2023-01-10] MEDS ORDERED: VANCOMYCIN 1,000 MG in DEXTROSE 5% 250 ML IV SCH (15:00)
[2023-01-10 16:00] VITALS: BP 109/63; PULSE 78; RESP 18; TEMP 98.7; O2SAT 98
[2023-01-10 20:00] VITALS: BP 133/70; PULSE 97; RESP 18; RESP 20; TEMP 97.6; O2SAT 96
[2023-01-10 20:06] VITALS: PULSE 91; RESP 20; O2SAT 91; O2SAT 95
[2023-01-10] MEDS: INSULIN LANTUS 100 UNITS/ML 10 ML VIAL SUBQ SCH (20:42)
[2023-01-11] MEDS: BLOOD GLUCOSE MONITORING 1 DEV DEV FS SCH ×4 (06:35→20:41)
[2023-01-11 06:57] LABS: ANION GAP 10.6 (8-16); CALCIUM 8.4 mg/dL (8.5-10.1); CREATININE 1.5 mg/dL (0.6-1.3); POTASSIUM 4.6 mmol/L (3.5-5.1)
[2023-01-11 07:10] VITALS: O2SAT 98
[2023-01-11 08:00] VITALS: BP 149/82; PULSE 74; PULSE 84; RESP 20; TEMP 97.8; O2SAT 96; O2SAT 98
[2023-01-11] MEDS: PANTOPRAZOLE 40 MG TABEC PO SCH (09:00)
[2023-01-11] MEDS ORDERED: fentaNYL citrate 0.05 MG/ML VIAL ONE (10:00)
[2023-01-11] MEDS ORDERED: MIDAZOLAM 2 MG/2 ML VIAL ONE (10:00)
[2023-01-11 16:00] VITALS: BP 144/72; PULSE 77; RESP 20; TEMP 97.6; O2SAT 98
[2023-01-11 18:55] VITALS: O2SAT 95
[2023-01-11 20:00] VITALS: PULSE 88; RESP 18; TEMP 97.5; O2SAT 94
[2023-01-11] MEDS: INSULIN LANTUS 100 UNITS/ML 10 ML VIAL SUBQ SCH (20:45)
[2023-01-11] MEDS: INSULIN LISPRO SLIDING SCALE 100 UNITS/ML VIAL SUBQ PRN (20:46)
[2023-01-12] VITALS: BP 150/81; PULSE 88; RESP 18; TEMP 97.5; O2SAT 94
[2023-01-12] MEDS: ACETAMINOPHEN 325 MG TAB PO PRN ×2 (03:06→20:35)
[2023-01-12] MEDS: BLOOD GLUCOSE MONITORING 1 DEV DEV FS SCH ×4 (06:36→20:41)
[2023-01-12 06:46] LABS: BASOPHILS # (AUTO) 0.1 K/uL (0.00-0.22); BASOPHILS % (AUTO) 0.7 % (0.0-2.0); EOSINOPHILS # (AUTO) 0.3 K/uL (0-0.4); EOSINOPHILS % (AUTO) 3.3 % (0.0-4.0); HEMATOCRIT 35.2 % (36-48); HEMOGLOBIN 11.4 g/dL (12.0-16.0); LYMPHOCYTES # (AUTO) 2.2 K/uL (2.5-16.5); LYMPHOCYTES % (AUTO) 22.2 % (20.5-51.1); MEAN CORPUSCULAR HEMOGLOBIN 27 pg (27-31); MEAN CORPUSCULAR HGB CONC 32 g/dL (33-37); MEAN CORPUSCULAR VOLUME 83.8 fL (80-94); MONOCYTES # (AUTO) 0.5 K/uL (0.8-1.0); MONOCYTES % (AUTO) 5.4 % (1.7-9.3); NEUTROPHILS # (AUTO) 6.7 K/uL (1.8-7.7); NEUTROPHILS % (AUTO) 68.4 % (42.2-75.2); PLATELET COUNT (AUTO) 392 K/uL (140-450); RED CELL DISTRIBUTION WIDTH 15.8 % (11.6-13.7); WHITE BLOOD COUNT (AUTO) 9.8 K/uL (4.8-10.8)
[2023-01-12 06:55] LABS: CALCIUM 8.5 mg/dL (8.5-10.1); CARBON DIOXIDE 28.2 mmol/L (21-32); CREATININE 1.5 mg/dL (0.6-1.3); POTASSIUM 5.2 mmol/L (3.5-5.1)
[2023-01-12 07:50] VITALS: O2SAT 94
[2023-01-12 08:00] VITALS: BP 149/72; PULSE 79; PULSE 84; PULSE 88; RESP 18; TEMP 97.2; TEMP 97.5; O2SAT 94; O2SAT 96; O2SAT 98
[2023-01-12] MEDS: PANTOPRAZOLE 40 MG TABEC PO SCH (09:00)
[2023-01-12] MEDS ORDERED: VANCOMYCIN 1.25GM PREMIX 250 ML IV SCH (09:00)
[2023-01-12] MEDS ORDERED: VANCOMYCIN HCL 1.25 GM in DEXTROSE 5% 250 ML IV SCH (09:00)
[2023-01-12] MEDS ORDERED: BUPIVACAINE-MPF 0.25% 30 ML VIAL INJ ONE (13:01)
[2023-01-12] MEDS ORDERED: LIDOCAINE/EPI MPF 1%1:200000 30 ML VIAL INJ ONE (13:01)
[2023-01-12] MEDS ORDERED: fentaNYL citrate 0.05 MG/ML VIAL ONE (13:24)
[2023-01-12] MEDS ORDERED: MIDAZOLAM 2 MG/2 ML VIAL ONE (13:24)
[2023-01-12] MEDS ORDERED: PROPOFOL 200 MG/20 ML VIAL IV ONE (13:30)
[2023-01-12] MEDS ORDERED: hydrALAZINE 25 MG TAB PO PRN (15:20)
[2023-01-12 16:00] VITALS: BP 150/62; PULSE 69; RESP 18; TEMP 97.5; O2SAT 94
[2023-01-12] MEDS: INSULIN LISPRO SLIDING SCALE 100 UNITS/ML VIAL SUBQ PRN ×2 (18:42→20:46)
[2023-01-12 19:27] VITALS: O2SAT 96
[2023-01-12 20:00] VITALS: PULSE 80; RESP 18; TEMP 97.8; O2SAT 92
[2023-01-12] MEDS: INSULIN LANTUS 100 UNITS/ML 10 ML VIAL SUBQ SCH (20:45)
[2023-01-12] MEDS ORDERED: oxyCODONE/APAP 5/325 MG 1 TAB TAB PO PRN (21:50)
[2023-01-13] VITALS: BP 148/95; PULSE 80; RESP 18; TEMP 97.8; O2SAT 92
[2023-01-13] MEDS: BLOOD GLUCOSE MONITORING 1 DEV DEV FS SCH ×3 (06:32→16:07)
[2023-01-13 07:05] LABS: ANION GAP 9.1 (8-16); BASOPHILS % (AUTO) 0.5 % (0.0-2.0); CALCIUM 8.1 mg/dL (8.5-10.1); CARBON DIOXIDE 29.9 mmol/L (21-32); CREATININE 1.7 mg/dL (0.6-1.3); EOSINOPHILS # (AUTO) 0.4 K/uL (0-0.4); EOSINOPHILS % (AUTO) 4.3 % (0.0-4.0); HEMATOCRIT 30.8 % (36-48); HEMOGLOBIN 10.1 g/dL (12.0-16.0); LYMPHOCYTES # (AUTO) 2.2 K/uL (2.5-16.5); LYMPHOCYTES % (AUTO) 23.3 % (20.5-51.1); MEAN CORPUSCULAR HEMOGLOBIN 27 pg (27-31); MEAN CORPUSCULAR HGB CONC 33 g/dL (33-37); MEAN CORPUSCULAR VOLUME 83.2 fL (80-94); MONOCYTES # (AUTO) 0.8 K/uL (0.8-1.0); MONOCYTES % (AUTO) 8.2 % (1.7-9.3); NEUTROPHILS # (AUTO) 5.9 K/uL (1.8-7.7); NEUTROPHILS % (AUTO) 63.7 % (42.2-75.2); PLATELET COUNT (AUTO) 284 K/uL (140-450); RED CELL DISTRIBUTION WIDTH 15.6 % (11.6-13.7); WHITE BLOOD COUNT (AUTO) 9.3 K/uL (4.8-10.8)
[2023-01-13 08:00] VITALS: BP 145/74; PULSE 82; PULSE 84; RESP 18; TEMP 97; TEMP 97.2; O2SAT 98; O2SAT 99
[2023-01-13 08:23] VITALS: O2SAT 95
[2023-01-13] MEDS ORDERED: VANCOMYCIN 1.25GM PREMIX 250 ML IV SCH (09:00)
[2023-01-13] MEDS ORDERED: NIFEdipine 30 MG TABER PO SCH (09:00)
[2023-01-13] MEDS: PANTOPRAZOLE 40 MG TABEC PO SCH (09:23)
[2023-01-13] MEDS: INSULIN LISPRO SLIDING SCALE 100 UNITS/ML VIAL SUBQ PRN (11:36)
[2023-01-13] MEDS ORDERED: INSU100I7 SQ (13:49)
[2023-01-13] MEDS ORDERED: HUMSLIDE SUBQ (13:55)
[2023-01-13 16:00] VITALS: BP 141/79; PULSE 84; RESP 18; TEMP 98.1; O2SAT 97
== END 2023-01-13 18:15 | disposition home or self-care (01) | DRG 721 ==
LOC: MED 14:27 → MMU 19:22 → OBSVTOIN 19:22 → MTU 21:52
PROVIDERS: ADMIT Family Medicine; ATTEND Family Medicine
PROC: 0JPT3XZ Removal of Tunneled Vascular Access Device from Trunk Subcutaneous Tissue and Fascia, Percutaneous Approach (ICD-10-PCS; principal; 2023-01-04)
PROC: 5A1D70Z Performance of Urinary Filtration, Intermittent, Less than 6 Hours Per Day (ICD-10-PCS; 2023-01-04)
PROC: 02HV33Z Insertion of Infusion Device into Superior Vena Cava, Percutaneous Approach (ICD-10-PCS; 2023-01-06)
PROC: B548ZZA Ultrasonography of Superior Vena Cava, Guidance (ICD-10-PCS; 2023-01-06)
PROC: 02PYX3Z Removal of Infusion Device from Great Vessel, External Approach (ICD-10-PCS; 2023-01-06)
PROC: 02HV33Z Insertion of Infusion Device into Superior Vena Cava, Percutaneous Approach (ICD-10-PCS; 2023-01-06)
PROC: B548ZZA Ultrasonography of Superior Vena Cava, Guidance (ICD-10-PCS; 2023-01-06)
PROC: 5A1D70Z Performance of Urinary Filtration, Intermittent, Less than 6 Hours Per Day (ICD-10-PCS; 2023-01-06)
PROC: 0JH63XZ Insertion of Tunneled Vascular Access Device into Chest Subcutaneous Tissue and Fascia, Percutaneous Approach (ICD-10-PCS; 2023-01-12)
PROC: 02HV33Z Insertion of Infusion Device into Superior Vena Cava, Percutaneous Approach (ICD-10-PCS; 2023-01-12)
PROC: B518ZZA Fluoroscopy of Superior Vena Cava, Guidance (ICD-10-PCS; 2023-01-12)
PROC: B548ZZA Ultrasonography of Superior Vena Cava, Guidance (ICD-10-PCS; 2023-01-12)
PROC: 5A1D70Z Performance of Urinary Filtration, Intermittent, Less than 6 Hours Per Day (ICD-10-PCS; 2023-01-12)
DX: T80.211A Bloodstream infection due to central venous catheter, initial encounter (principal); J96.01 Acute respiratory failure with hypoxia; E43 Unspecified severe protein-calorie malnutrition; I13.2 Hypertensive heart and chronic kidney disease with heart failure and with stage 5 chronic kidney disease, or end stage renal disease; N18.6 End stage renal disease; E87.1 Hypo-osmolality and hyponatremia; D63.8 Anemia in other chronic diseases classified elsewhere; E11.22 Type 2 diabetes mellitus with diabetic chronic kidney disease; E86.0 Dehydration; Z68.44 Body mass index [BMI] 60.0-69.9, adult; N39.0 Urinary tract infection, site not specified; E66.01 Morbid (severe) obesity due to excess calories; E11.65 Type 2 diabetes mellitus with hyperglycemia; K21.9 Gastro-esophageal reflux disease without esophagitis; E87.5 Hyperkalemia; I25.10 Atherosclerotic heart disease of native coronary artery without angina pectoris; G47.30 Sleep apnea, unspecified; J44.9 Chronic obstructive pulmonary disease, unspecified; I50.32 Chronic diastolic (congestive) heart failure; B95.62 Methicillin resistant Staphylococcus aureus infection as the cause of diseases classified elsewhere; Y83.8 Other surgical procedures as the cause of abnormal reaction of the patient, or of later complication, without mention of misadventure at the time of the procedure; Y92.89 Other specified places as the place of occurrence of the external cause; Z22.322 Carrier or suspected carrier of Methicillin resistant Staphylococcus aureus; Z99.2 Dependence on renal dialysis; Z98.891 History of uterine scar from previous surgery
CPT/HCPCS: 36415; 70450; 71045; 80048; 80053; 80202; 80305; 81001; 82150; 82570; 82948; 83036; 83605; 83690; 83735; 83880; 84100; 84436; 84439; 84443; 84479; 84484; 85025; 85610; 85730; 87040; 87070; 87075; 87081; 87086; 87186; 93005; 93313; 93970; 94660; 96374; 99285; J0696; J1644; J1815; J2001; J2250; J2270; J2405; J2704; J3010; J3370; J3372; J3490; J7030; J7060; Q0092

== ENCOUNTER 2023-06-16 17:59 | Emergency (ER) | payer MEDICAID ==
[~2023-06-16] VITALS: Ht 154.9 cm; Wt 164.2 kg
[~2023-06-16 17:59] MED LIST changes: -FURO-570 PO; +HUMSLIDE SUBQ; -INSU10SU6 SUBQ; -ORE25 PO; -PRED10TA5 PO; -ROBAC PO
[2023-06-16 18:24] VITALS: BP 113/70; PULSE 94; RESP 16; TEMP 98.3; O2SAT 94
[2023-06-16] MEDS: predniSONE 20 MG TAB PO ONE (18:50)
[2023-06-16] MEDS: ALBUTEROL SULFATE/IPRATROPIU 3 ML SOL IH ONE (18:51)
[2023-06-16] MEDS: ALBUTEROL 0.083% 2.5 MG/3 ML NEBU INH ONE (18:51)
[2023-06-16 18:55] VITALS: PULSE 92; RESP 26; O2SAT 96
[2023-06-16 18:57] VITALS: BP 138/86; O2SAT 100
[2023-06-16] MEDS ORDERED: PRED20TA5 PO (19:13)
[2023-06-16] MEDS ORDERED: PRON INH (19:13)
[2023-06-16] MEDS ORDERED: ALBU0.0912 INH (19:13)
== END 2023-06-16 19:30 | disposition home or self-care (01) ==
LOC: MED 17:59
DX: J45.901 Unspecified asthma with (acute) exacerbation (principal); E11.22 Type 2 diabetes mellitus with diabetic chronic kidney disease; I13.2 Hypertensive heart and chronic kidney disease with heart failure and with stage 5 chronic kidney disease, or end stage renal disease; N18.6 End stage renal disease; I50.9 Heart failure, unspecified; Z99.2 Dependence on renal dialysis; K21.9 Gastro-esophageal reflux disease without esophagitis; Z98.890 Other specified postprocedural states; Z79.899 Other long term (current) drug therapy; Z79.4 Long term (current) use of insulin
CPT/HCPCS: 94640; 99283; J7512; J7613

== ENCOUNTER 2023-10-21 16:14 | Emergency (ER) | payer MEDICAID ==
[~2023-10-21] VITALS: Ht 154.9 cm; Wt 165.6 kg
[~2023-10-21 16:14] MED LIST changes: +PRED20TA5 PO; +PRON INH
[2023-10-21 16:21] VITALS: BP 185/75; PULSE 83; RESP 18; TEMP 98; O2SAT 97
[2023-10-21] MEDS ORDERED: DICL20GE TP (17:52)
[2023-10-21 18:29] VITALS: BP 145/82; PULSE 88; RESP 16; TEMP 98; O2SAT 99
== END 2023-10-21 18:29 | disposition home or self-care (01) ==
LOC: MED 16:14
DX: M25.562 Pain in left knee (principal); J45.909 Unspecified asthma, uncomplicated; E11.22 Type 2 diabetes mellitus with diabetic chronic kidney disease; I13.2 Hypertensive heart and chronic kidney disease with heart failure and with stage 5 chronic kidney disease, or end stage renal disease; I50.9 Heart failure, unspecified; N18.6 End stage renal disease; Z99.2 Dependence on renal dialysis; K21.9 Gastro-esophageal reflux disease without esophagitis; Z79.899 Other long term (current) drug therapy
CPT/HCPCS: 29530; 73562; 99283